=== PATIENT | male | born 1975 | race Caucasian/White ===

== ENCOUNTER 2017-04-10 15:19 | Emergency (ER) | payer MEDICARE, OTHER ==
[2017-04-10 15:24] VITALS: BP 108/77; PULSE 119; RESP 18; TEMP 98.1
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
== END 2017-04-10 16:13 | disposition home or self-care (01) ==
LOC: EEVIPCON 15:19 → EC 15:19
DX: T59.3X3A Toxic effect of lacrimogenic gas, assault, initial encounter (principal); H10.212 Acute toxic conjunctivitis, left eye; R00.0 Tachycardia, unspecified; F17.200 Nicotine dependence, unspecified, uncomplicated
CPT/HCPCS: 99284

== ENCOUNTER → 2017-05-16 | Outpatient (CLI) | payer MEDICARE, OTHER ==
--- NOTE | 2017-05-16 08:23 | US ---
EXAMINATION TYPE: US gallbladder DATE OF EXAM: 05/16/2017 COMPARISON: NONE CLINICAL HISTORY: R10.84 ABD PAIN. Intermittent N/V after eating x 2 weeks, occasional abdomen pain, patient not NPO: drank 1 cup of coffee before exam EXAM MEASUREMENTS: Liver Length: 13.3 cm Gallbladder Wall: 0.2 cm CBD: 0.3 cm Right Kidney: 9.6 x 4.9 x 4.5 cm Difficult and limited study due to patient body habitus and patient not NPO Pancreas: visualized portions wnl, tail obscured by overlying midline bowel gas Liver: somewhat course echotexture visualized heterogeneously hyperechoic Gallbladder: appears wnl as seen, patient not NPO Evidence for sonographic Johnson's sign: no CBD: visualized portions wnl, limited by overlying bowel gas Right Kidney: visualized portions wnl, inferior pole obscured by overlying bowel gas Visualized liver is heterogeneously hyperechoic in appearance. Evaluation for focal masses is subopti mal due to the heterogeneity. IMPRESSION: No shadowing mobile gallstones or ultrasound evidence for acute cholecystitis. Heterogene ous hyperechoic appearance of liver is likely on basis of mild diffuse fatty infiltration.
== END | disposition home or self-care (01) ==
LOC: RADUSWWP 06:56
PROVIDERS: ATTEND Family Medicine
DX: R10.84 Generalized abdominal pain (principal)
CPT/HCPCS: 76705

== ENCOUNTER → 2017-05-18 | Outpatient (CLI) | payer MEDICARE, OTHER ==
--- NOTE | 2017-05-18 11:02 | FL ---
EXAMINATION TYPE: FL UGI air DATE OF EXAM: 05/18/2017 COMPARISON: NONE HISTORY: Abdominal pain, R 10.84 and vomiting after eating TECHNIQUE: A double contrast UGI study is performed. FINDINGS: The esophagus shows normal motility and emptying into the stomach. No evidence of hiatal hernia or s tricture noted. The stomach shows normal distensibility, peristalsis, and mucosal folds. No evidence of any mass or ulcer disease. No significant gastroesophageal reflux was seen during real time performance of this study. The duodenal bulb, sweep, and proximal small bowel loops are unremarkable. 21 images obtained, 3 minutes 20 seconds fluoroscopy time IMPRESSION: Normal upper GI study.
== END | disposition home or self-care (01) ==
LOC: RADFLMAIN 08:31
PROVIDERS: ATTEND Family Medicine
DX: R10.84 Generalized abdominal pain (principal)
CPT/HCPCS: 74246

== ENCOUNTER 2019-10-22 16:48 | Inpatient (IN) | payer MEDICARE, MEDICAID ==
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
[2019-10-22] MEDS ORDERED: ACETAMINOPHEN TAB 325 MG TAB PO PRN (19:09)
[2019-10-22] MEDS ORDERED: ZIPRASIDONE 20 MG VIAL IM PRN (19:09)
[2019-10-22] MEDS ORDERED: MAGNESIUM HYDROXIDE 2,400 MG/10 ML CUP PO PRN (19:09)
[2019-10-22] MEDS ORDERED: MAG HYDROX/AL HYDROX/SIMETH 30 ML CUP PO PRN (19:09)
[2019-10-22] MEDS ORDERED: LORazepam 1 MG TAB PO PRN (19:09)
[2019-10-22] MEDS ORDERED: LORazepam 2 MG/ML INJ IM PRN (19:11)
[2019-10-22 19:41] LABS: Amphetamine Screen,Urine Not Detected (NotDetected); Barbiturate Screen,Urine Not Detected (NotDetected); Benzodiazepines Screen,Urine Not Detected (NotDetected); Cocaine Screen,Urine Not Detected (NotDetected); Methadone Screen, Urine Not Detected (NotDetected); Opiate Screen,Urine Not Detected (NotDetected); Oxycodone Screen, Urine Not Detected (NotDetected); Phencyclidine Screen,Urine Not Detected (NotDetected); Tricyclic Antidepressant,Urine Not Detected (NotDetected); Urn Cannabinoid Scrn Not Detected (NotDetected)
[2019-10-22] MEDS: risperiDONE 1 MG TAB PO SCH (21:17)
[2019-10-23] MEDS ORDERED: ALBUTEROL NEBULIZED 2.5 MG/3 ML INHALATION PRN (01:07)
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
[2019-10-23] MEDS ORDERED: ALBUTEROL INHALER 60 PUFF/8 GM INHALER (MHU) INHALATION PRN (02:00)
[2019-10-23 08:55] LABS: Basophils % (A) 1 %; Eosinophils # (A) 0.1 k/uL (0-0.7); Eosinophils % (A) 2 %; HCT 48.3 % (39.0-53.0); HGB 15.5 gm/dL (13.0-17.5); Lymphocytes % (A) 19 %; MCH 28.7 pg (25.0-35.0); MCHC 32.1 g/dL (31.0-37.0); MCV 89.4 fL (80.0-100.0); Mean Platelet Volume 7.8; Monocytes # (A) 0.3 k/uL (0-1.0); Monocytes % (A) 6 %; Neutrophils # (A) 3.9 k/uL (1.3-7.7); Neutrophils % (A) 71 %; Platelet Count 192 k/uL (150-450); RBC 5.41 m/uL (4.30-5.90); RDW 14.1 % (11.5-15.5); WBC 5.5 k/uL (3.8-10.6)
[2019-10-23] MEDS ORDERED: risperiDONE 2 MG TAB PO SCH (09:00)
[2019-10-23 09:06] LABS: ALT 38 U/L (4-49); AST 30 U/L (17-59); African American GFR (CKD) >90 (>60 ml/min/1.73 sqM); Albumin 4.5 g/dL (3.5-5.0); Alkaline Phosphatase 78 U/L (38-126); Anion Gap 7 mmol/L; Blood Urea Nitrogen 16 mg/dL (9-20); Calcium 9.2 mg/dL (8.4-10.2); Carbon Dioxide 26 mmol/L (22-30); Chloride 106 mmol/L (98-107); Cholesterol 160 mg/dL (<200); Glucose 88 mg/dL (74-99); HDL Cholesterol 42 mg/dL (40-60); LDL Cholesterol,Calculated 80 mg/dL (0-99); Non-African American GFR(CKD) >90 (>60 ml/min/1.73 sqM); Potassium 4.2 mmol/L (3.5-5.1); Sodium 139 mmol/L (137-145); Total Bilirubin 0.8 mg/dL (0.2-1.3); Total Protein 7.3 g/dL (6.3-8.2); Triglycerides 190 mg/dL (<150)
[2019-10-23] MEDS: risperiDONE 1 MG TAB PO SCH (11:12)
[2019-10-23] MEDS: NICOTINE 14MG/24HR PATCH TRANSDERM SCH ×2 (11:13→18:48)
[2019-10-23] MEDS ORDERED: PALIPERIDONE IM 234 MG/1.5 ML SYG IM SCH ×2 (12:00→13:00)
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
[2019-10-23] MEDS: QUEtiapine 200 MG TAB PO SCH (18:48)
[2019-10-24] MEDS: NICOTINE 14MG/24HR PATCH TRANSDERM SCH (09:47)
[2019-10-24] MEDS: PALIPERIDONE 6 MG TAB.ER.24 PO SCH (09:48)
--- NOTE | 2019-10-24 11:31 | P.PN ---
Progress Note - Text Progress Note Date: 10/24/19 Clinical Problems: Schizoaffective disorder bipolar type, alcohol use disorder, intellectual disability, adult antisocial behavior Interim history: I reviewed the medical record, attempted to interview the patient and discussed his treatment and treatment plan during team meeting. He would not get out of bed for the interview. He admitted to experiencing auditory hallucinations. For the "last 8 or 9 years" he is been hearing multiple voices only refers to as "they". The voices tell him to "kill yourself" and to "uatsdin Satan". He becomes angry with his experience because he "refuses to uatsdin Satan. ... You think I'm talking myself but I would not. ... I am talking to them." We restarted and Invega Sustenna 234 mg yesterday and Seroquel 200 mg at bedtime. We also prescribed Invega 6 mg daily since his last injection of Sustenna was in June 2019. Mental status exam: He presented as a withdrawn, irritable, angry but cooperative 44-year-old male. He looked at the floor during the entire conversation. He had psychomotor slowing but no abnormal movements. His speech abrupt and consistent with his mood. He did not express suicidal ideation, wishes or homicidal ideation. He also did not express ideas reference, paranoid ideation or delusional thoughts. He described auditory hallucinations, command auditory hallucinations but did not appear to be responding to internal stimuli during the interview. Assessment: He is irritable, angry and withdrawn. He presented with increasing auditory hallucinations and aggressive behavior after he went several months (approximately 4) without receiving injection of paliperidone. Plan: Continue inpatient treatment. Deferral conference to be scheduled. Continue paliperidone 6 mg daily until the second dose of sustenna. Continue Seroquel 200 mg at bedtime and Invega Sustenna 234 mg IM monthly. Encouraged attendance to therapeutic groups and activities. Evaluate clinical status response to treatment daily basis.
[2019-10-24] MEDS: QUEtiapine 200 MG TAB PO SCH (20:00)
[2019-10-25] MEDS: NICOTINE 14MG/24HR PATCH TRANSDERM SCH (08:17)
[2019-10-25] MEDS: PALIPERIDONE 6 MG TAB.ER.24 PO SCH (08:17)
--- NOTE | 2019-10-25 12:18 | P.PN ---
Progress Note - Text Progress Note Date: 10/25/19 Clinical Problems: Schizoaffective disorder bipolar type, alcohol use disorder, intellectual disability, adult antisocial behavior Interim history: I reviewed the medical record, attempted to interview the patient and discussed his treatment and treatment plan during team meeting. He came to my office for the interview. He was irritable but engaged in interview. He described continued auditory hallucinations that were commanding derogatory and critical. During our interview he commented that "you will never get rid of the hallucinations." He alleged they have been continuous since the onset of his illness and only fluctuates in intensity. I attempted to engage in a conversation of circumstance to this hospitalization. He alleged that he broke furniture and cut up with the drapes because he was mad at "Dipesh". He stated that he does not want to hurt anybody but had to "get out my anger." He talked about "Dipesh" disturbing him and keeping him awake at night time. He made unusual statements such as Dipesh was bringing rats into the house. He became noticeably angrier as we talked about Dipesh. Mental status exam: He presented as a withdrawn, irritable, angry but cooperative 44-year-old male. He looked at the floor during the entire conversation. He had psychomotor slowing but no abnormal movements. His speech dysarthric, abrupt and consistent with his mood. He did not express suicidal ideation, wishes or homicidal ideation. He also did not express ideas reference. He expressed paranoid ideation and possible paranoid delusional beliefs. He described auditory hallucinations, command auditory hallucinations but did not appear to be responding to internal stimuli during the interview. Assessment: He is irritable, angry and withdrawn. He presented with increasing auditory hallucinations and aggressive behavior after he went several months (approximately 4) without receiving injection of paliperidone. Plan: Continue inpatient treatment. Deferral conference to be scheduled. Continue paliperidone 6 mg daily until the second dose of sustenna and Invega Sustenna 234 mg IM monthly. Titrate Seroquel to 300-400 mg at bedtime. Encouraged attendance to therapeutic groups and activities. Evaluate clinical status response to treatment daily basis.
[2019-10-25] MEDS: QUEtiapine 200 MG TAB PO SCH (21:03)
[2019-10-26] MEDS: PALIPERIDONE 6 MG TAB.ER.24 PO SCH (09:02)
[2019-10-26] MEDS: NICOTINE 14MG/24HR PATCH TRANSDERM SCH (09:02)
--- NOTE | 2019-10-26 17:35 | CONS ---
CONSULTATION CHIEF COMPLAINT: Bipolar depression and acute psychosis. HISTORY OF PRESENT ILLNESS: This is another admission for this 44-year-old white male who has a long-standing history of psychiatric problems. He has not been seen in the office since June of 2017. At that time, he was treated for nicotine dependence, alcoholism, depression, and schizophrenia. He was not on any psych medications at that time. Apparently he wound up having some difficulties and they brought him back into the emergency room this time. At present time, he is quite unpleasant and uncooperative. REVIEW OF SYSTEMS: He apparently has not had any headaches, neurologic problems, chest pain, cough, shortness of breath, fever, chills, abdominal pain, etc. Past medical history, family history, personal and social histories reveal that he is not allergic to any medications. He has had no prior surgery. He does smoke and drinks occasionally. PHYSICAL EXAMINATION: Blood pressure is 118/74, pulse of 84, respirations 20. He is afebrile. In general, he appeared to be asleep in bed and irritable upon arousing. He was slightly overweight. Head, ears, eyes, nose, mouth, and throat were grossly normal. Chest is clear to auscultation. Cardiac exam demonstrated sinus rhythm. Abdomen is soft and slightly protuberant. Extremities: Normal. Neurologically, he is intact. IMPRESSION: He is admitted to the hospital with diagnoses: 1. Bipolar depression. 2. History of alcoholism. 3. History of nicotine abuse. RECOMMENDATIONS: None. MMODL / IJN: [id number] /
--- NOTE | 2019-10-26 20:47 | PN ---
DATE OF SERVICE: 10/26/2019 PROGRESS NOTE CHIEF COMPLAINT: The patient was agitated and aggressive in his AFC and had significant property destruction. He stated he "wants to kill somebody" according to his petition for involuntary hospitalization. INTERVAL HISTORY: The patient has been doing fair. He had a quiet day yesterday. He remained quite isolated. He prefers to stay in his room. He said that he slept "okay" last night. He says he prefers to sleep in the day and apparently naps on and off in the day. He made comments about auditory hallucinations. It was difficult to be clear what he was indicating. As noted by Dr. Dia yesterday, he talked about auditory hallucinations that were distressing to him. When I tried to get more information about that, he seemed to suggest that they were not so much of a problem. He made some odd references and it was hard to be clear what he was saying. He acknowledges that he has paranoid thinking and does not really trust people. He has been cooperative with care. He tolerates his psychotropic medications. MENTAL STATUS: Patient sat with a little restlessness. He gave fair eye contact. At best. He answered questions with brief responses. He did not say a lot. At times, his thoughts were somewhat tangential and I was difficult to follow some of what he was saying. His affect was flat, his mood reserved. He seemed moderately distressed. He continues to note paranoid delusions. He was oriented to his circumstances and surroundings. ASSESSMENT: We will continue the current diagnosis and treatment plan. I reviewed medication issues with the patient. I noted Dr. Dia has set up a titration of Seroquel, so he will receive 200 mg again tonight and then tomorrow go up to 300 mg. He has received Invega Sustenna on October 22 and continues with 6 mg of oral Invega. I reviewed indications for the medications, as well as potential side effects including metabolic concerns. I discussed long-term management issues relating to his long-acting injectable. We will continue to focus on stabilization and discharge planning. MMKENAL / ELIZABETHN: [id number] / MTDD
[2019-10-26] MEDS: QUEtiapine 200 MG TAB PO SCH (20:58)
[2019-10-27] MEDS: PALIPERIDONE 6 MG TAB.ER.24 PO SCH (08:26)
[2019-10-27] MEDS: NICOTINE 14MG/24HR PATCH TRANSDERM SCH (08:26)
--- NOTE | 2019-10-27 17:27 | PN ---
PROGRESS NOTE DATE OF SERVICE: 10/27/2019. CHIEF COMPLAINT: The patient was agitated and aggressive in his AFC and had significant property destruction. He stated he "wants to kill somebody" according to his petition for involuntary hospitalization. INTERVAL HISTORY: Patient has been doing fair. He had a quiet evening last night. He keeps to himself. He spends a fair amount of time in his room. He chooses not to attend groups. He slept fairly well last night. Today he has been up. Still he keeps to himself. He does not interact too much with others. It is noteworthy that he will have periods where he will swiss machinist the doorway of his room and seemingly look up and down the somers as if with an appearance of being quite guarded and suspicious. He acknowledges that he continues to have paranoid thinking. He asked about whether his medication could be increased. He has been cooperative with care. He tolerates his psychotropic medications. MENTAL STATUS: Patient gave fairly good eye contact. At times, he had a staring gaze, though also he would look off to his side as if he was looking in a guarded manner. He answered questions with brief responses. His thoughts were clear. His affect was constricted. His mood reserved. He seems somewhat distressed, though he did present in the interview with a fairly calm if not almost friendly manner. He continues with paranoid delusions. He voices no thoughts of harm to self or others. He was oriented and alert. ASSESSMENT: I will continue the current diagnosis and treatment plan. I reviewed medication issues with the patient. I will increase Seroquel to 400 mg at bedtime. He continues on Invega 6 mg a day along with his Invega Sustenna. I reviewed medication issues as far as the anticipation of the followup dose of Sustenna. I discussed long-term treatment issues. We will focus on stabilization and discharge planning. MMODL / IJN: [id number] /
[2019-10-27] MEDS ORDERED: QUEtiapine 100 MG TAB PO SCH (21:00)
[2019-10-27] MEDS: QUEtiapine 200 MG TAB PO SCH (21:14)
[2019-10-28] MEDS: NICOTINE 14MG/24HR PATCH TRANSDERM SCH (08:14)
[2019-10-28] MEDS: PALIPERIDONE 6 MG TAB.ER.24 PO SCH (08:14)
--- NOTE | 2019-10-28 15:02 | P.PN ---
Progress Note - Text Progress Note Date: 10/28/19 Clinical Problems: Schizoaffective disorder bipolar type, alcohol use disorder, intellectual disability, adult antisocial behavior Interim history: I reviewed the medical record, attempted to interview the patient and discussed his treatment and treatment plan during team meeting. He came to my office for the interview. He was not irritable and engaged in the interview. He asked for assistance with finding alternate housing stating that he will not return to his room and board. He minimized auditory hallucinations and stated they are "not that bad now." The social worker assistant reported that he cannot return to the room and board and discard he is requesting a "crisis bed". The [facility] liaison suggested temporary placement at [facility]. Mental status exam: He presented as a pleasant and cooperative 44-year-old male. He made eye contact and attended to the interview. He had psychomotor slowing but no abnormal movements. His speech was dysarthric, abrupt and appropriate. He did not express suicidal ideation, wishes or homicidal ideation. He also did not express ideas reference. He did not express paranoid ideation and possible paranoid delusional beliefs. He acknowledges he continues to experience auditory hallucinations but didn't experience was not overwhelming or preoccupying. Assessment: He is much less irritable, angry and withdrawn. He can be discharge once we find appropriate temporary housing. Plan: Continue inpatient treatment. Deferral conference to be scheduled. Continue paliperidone 6 mg daily until the second dose of sustenna and Invega Sustenna 234 mg IM monthly. Seroquel 400 mg at bedtime. Encouraged attendance to therapeutic groups and activities. Evaluate clinical status response to treatment daily basis.
[2019-10-28] MEDS: QUEtiapine 200 MG TAB PO SCH (21:00)
[2019-10-29] MEDS: NICOTINE 14MG/24HR PATCH TRANSDERM SCH (09:34)
[2019-10-29] MEDS: PALIPERIDONE 6 MG TAB.ER.24 PO SCH (09:34)
--- NOTE | 2019-10-29 13:03 | P.PN ---
Progress Note - Text Progress Note Date: 10/29/19 Clinical Problems: Schizoaffective disorder bipolar type, alcohol use disorder, intellectual disability, adult antisocial behavior Interim history: I reviewed the medical record, attempted to interview the patient and discussed his treatment and treatment plan during team meeting. He came to my office for the interview. He was irritable and minimally cooperative. I explained that his guardian requesting placement in a correction and we plan to keep him in hospital and find suitable placement. He replied "what do you want me to do? Cry like a baby?" Mental status exam: He presented as an irritable and minimally cooperative 44-year-old male. He did not made eye contact but appeared to attended to the interview. He looked at the floor window throughout the interview. He had psychomotor slowing but no abnormal movements. His speech was dysarthric and abrupt. He did not express suicidal ideation, wishes or homicidal ideation. He also did not express ideas reference. He is paranoid but did not express paranoid ideation and possible paranoid delusional beliefs. He ack nowledges he continues to experience auditory hallucinations. "They are not telling me to kill myself." Assessment: He is paranoid, irritable, angry and withdrawn. Plan: Continue inpatient treatment. Deferral conference to be scheduled. Continue paliperidone 6 mg daily until the second dose of sustenna and Invega Sustenna 234 mg IM monthly. Seroquel 400 mg at bedtime. Consider a clozapine trial. Encouraged attendance to therapeutic groups and activities. Evaluate clinical status response to treatment daily basis.
[2019-10-29] MEDS: QUEtiapine 200 MG TAB PO SCH (21:18)
[2019-10-30] MEDS: PALIPERIDONE 6 MG TAB.ER.24 PO SCH (09:18)
[2019-10-30] MEDS: NICOTINE 14MG/24HR PATCH TRANSDERM SCH (09:18)
[2019-10-30 10:57] LABS: Basophils % (A) 1 %; Eosinophils # (A) 0.1 k/uL (0-0.7); Eosinophils % (A) 1 %; HGB 14.7 gm/dL (13.0-17.5); Lymphocytes # (A) 0.8 k/uL (1.0-4.8); Lymphocytes % (A) 17 %; MCH 28.8 pg (25.0-35.0); MCHC 33.3 g/dL (31.0-37.0); MCV 86.4 fL (80.0-100.0); Mean Platelet Volume 7.4; Monocytes # (A) 0.3 k/uL (0-1.0); Monocytes % (A) 6 %; Neutrophils # (A) 3.4 k/uL (1.3-7.7); Neutrophils % (A) 73 %; Platelet Count 179 k/uL (150-450); RDW 13.8 % (11.5-15.5); WBC 4.7 k/uL (3.8-10.6)
--- NOTE | 2019-10-30 12:07 | P.PN ---
Progress Note - Text Progress Note Date: 10/30/19 Clinical Problems: Schizoaffective disorder bipolar type, alcohol use disorder, intellectual disability, adult antisocial behavior Interim history: I reviewed the medical record, interviewed the patient and discussed his treatment and treatment plan during team meeting. He came to my office for the interview. He was not irritable or overtly paranoid. He described continued auditory hallucinations that were commanding and derogatory. He stated that he is had these hallucinations for several years and believes that there is nothing we can do to eliminate the experience. We discussed treatment options and he agreed to a trial of clozapine. Mental status exam: He presented as cooperative 44-year-old male. He did not made eye contact but appeared to attended to the interview. He looked at the floor throughout the interview. He had psychomotor slowing but no abnormal movements. His speech was dysarthric and abrupt. He did not express suicidal ideation, wishes or homicidal ideation. He also did not express ideas reference. He is paranoid but did not express paranoid ideation and possible paranoid delusional beliefs. He acknowledges he continues to experience auditory hallucinations. Assessment: He is persistently and severely mentally ill and has shown only par tial response to multiple antipsychotic medications. Plan: Continue inpatient treatment. Continue paliperidone 6 mg daily until the second dose of sustenna and Invega Sustenna 234 mg IM monthly. Taper then discontinue Seroquel. Begin clozapine 12.5 mg and titrate to a minimum of 200 mg daily. Obtain weekly CBC with differential. Encouraged attendance to therapeutic groups and activities. Evaluate clinical status response to treatment daily basis.
[2019-10-30 14:01] VITALS: BMI 28.3
[2019-10-30] MEDS ORDERED: cloZAPine 25 MG TAB PO SCH (21:00)
[2019-10-30] MEDS ORDERED: QUEtiapine 100 MG TAB PO SCH (21:00)
[2019-10-30] MEDS: cloZAPine 25 MG TAB PO SCH (21:03)
[2019-10-31] MEDS: PALIPERIDONE 6 MG TAB.ER.24 PO SCH (08:49)
[2019-10-31] MEDS: NICOTINE 14MG/24HR PATCH TRANSDERM SCH (08:49)
--- NOTE | 2019-10-31 12:05 | P.PN ---
Progress Note - Text Progress Note Date: 10/31/19 Clinical Problems: Schizoaffective disorder bipolar type, alcohol use disorder, intellectual disability, adult antisocial behavior Interim history: I reviewed the medical record, interviewed the patient and discussed his treatment and treatment plan during team meeting. He denied side effects to initial doses of clozapine. He described continued auditory hallucinations involving "people from [facility]" talking to him. He was irritable but not overtly hostile. He continued to complain about a machine pie maker at the [facility] home. During the interview he talked about wanting to "kick his ass" but denied intent or plan. Mental status exam: He presented as cooperative 44-year-old male. He intermittently made eye contact but appeared to attended to the interview. He looked at the floor throughout the interview. He had psychomotor slowing but no abnormal movements. His speech was dysarthric and abrupt. He did not express suicidal ideation, wishes or homicidal ideation. He also did not express ideas reference. He is paranoid but did not express paranoid ideation and possible paranoid delusional beliefs. He acknowledges he continues to experience auditory hallucinations. Assessment: He is persistently and severely mentally ill and has shown only partial response to multiple antipsychotic medications. Plan: Continue inpatient treatment. Continue paliperidone 6 mg daily until the second dose of sustenna and Invega Sustenna 234 mg IM monthly. Taper then discontinue Seroquel. Continue titration of clozapine. Obtain weekly CBC with differential. Encouraged attendance to therapeutic groups and activities. Evaluate clinical status response to treatment daily basis.
[2019-10-31] MEDS ORDERED: QUEtiapine 200 MG TAB PO SCH (21:00)
[2019-10-31] MEDS ORDERED: cloZAPine 25 MG TAB PO SCH (21:00)
[2019-10-31] MEDS: cloZAPine 25 MG TAB PO SCH (21:22)
[2019-11-01] MEDS: NICOTINE 14MG/24HR PATCH TRANSDERM SCH (09:49)
[2019-11-01] MEDS: PALIPERIDONE 6 MG TAB.ER.24 PO SCH (09:49)
--- NOTE | 2019-11-01 11:09 | P.PN ---
Progress Note - Text Progress Note Date: 11/01/19 Clinical Problems: Schizoaffective disorder bipolar type, alcohol use disorder, intellectual disability, adult antisocial behavior Interim history: I reviewed the medical record, interviewed the patient and discussed his treatment and treatment plan during team meeting. He complained of marked sedation from the 100 mg dose of clozapine. She was reluctant to talk about his psychotic experiences. When I asked if he is still "hearing voices" he replied "we will never get rid of the voices." Mental status exam: He presented as sedated 44-year-old male. He would not get out of bed but made eye contact but appeared to attended to the interview. He had psychomotor slowing but no abnormal movements. His speech was dysarthric and abrupt. He did not express suicidal ideation, wishes or homicidal ideation. He also did not express ideas reference. He was not as guarded or paranoid as she was from prior encounters. He acknowledges he continues to experience auditory hallucinations but would not talk about the experience. Assessment: He is having increasing sedation from the clozapine. The hallucinatory experiences appear to have diminished and he is less guarded and suspicious. Plan: Continue inpatient treatment. Continue paliperidone 6 mg daily until the second dose of sustenna and Invega Sustenna 234 mg IM monthly. Taper then discontinue Seroquel. Hold the clozapine dose to 100 mg at bedtime. Obtain weekly CBC with differential. Encouraged attendance to therapeutic groups and activities. Evaluate clinical status response to treatment daily basis.
[2019-11-01] MEDS ORDERED: QUEtiapine 100 MG TAB PO SCH (21:00)
[2019-11-01] MEDS: cloZAPine 100 MG TAB PO SCH (21:17)
[2019-11-02] MEDS: PALIPERIDONE 6 MG TAB.ER.24 PO SCH (08:19)
[2019-11-02] MEDS: NICOTINE 14MG/24HR PATCH TRANSDERM SCH (08:20)
--- NOTE | 2019-11-02 08:51 | P.PN ---
Progress Note - Text Progress Note Date: 11/02/19 Clinical Problems: Schizoaffective disorder bipolar type, alcohol use disorder, intellectual disability, adult antisocial behavior Interim history: I reviewed the medical record and interviewed the patient He complained of marked sedation from the 100 mg dose of clozapine. He complained of sedation and did not want to come to my office for the interview. He is laying in bed and would not take the blanket over him over his head. When I asked if he has any concerns he replied "no". I asked about auditory hallucinations and he replied "do not a problem now." He does not participate in therapeutic groups and activities. He's been no management problem had no episodes. His control. Mental status exam: He was withdrawn and minimally cooperative He would not get out of bed and would not make eye contact. His speech was dysarthric and abrupt. He was irritable but not inappropriate He did not express suicidal ideation, wishes or homicidal ideation. He also did not express ideas reference. He was not as guarded or paranoid as she was from prior encounters. He did not appear to be responding to internal stimuli and reported a decline in his severity of the auditory hallucinations. Assessment: He appears to be responding to clozapine with decreased in the severity of the auditory hallucinations. Plan: Continue inpatient treatment. We may be able to discontinue the oral paliperidone sooner. Continue Invega Sustenna 234 mg IM monthly and clozapine dose to 100 mg at bedtime and titrated according to clinical response and tolerance.. Obtain weekly CBC with differential. Encouraged attendance to therapeutic groups and activities. Evaluate clinical status response to treatment daily basis.
[2019-11-02] MEDS ORDERED: cloZAPine 100 MG TAB PO SCH (09:00)
[2019-11-02] MEDS: cloZAPine 100 MG TAB PO SCH (19:41)
[2019-11-02] MEDS ORDERED: QUEtiapine 50 MG TAB PO SCH (21:00)
[2019-11-03] MEDS: NICOTINE 14MG/24HR PATCH TRANSDERM SCH (08:52)
[2019-11-03] MEDS: PALIPERIDONE 6 MG TAB.ER.24 PO SCH (08:52)
--- NOTE | 2019-11-03 12:30 | P.PN ---
Progress Note - Text Progress Note Date: 11/03/19 Clinical Problems: Schizoaffective disorder bipolar type, alcohol use disorder, intellectual disability, adult antisocial behavior Interim history: I reviewed the medical record and interviewed the patient. He was more communicative than on prior encounters. He denied that he is experiencing auditory hallucinations but believes that he has a chip implanted in his brain. He believes that he chip places thoughts in his mind. He believes that a chip was implanted when he "ate a banana." He became overtly distressed as he was discussing disbelief. He does not participate in therapeutic groups and activities. He's been no management problem and had no episodes of behavioral dyscontrol Mental status exam: He was withdrawn but cooperativ. He was pleasant on approach and made eye contact. His speech was dysarthric. He became irritable when he was describing the above delusional belief. He did not express suicidal ideation, wishes or homicidal ideation. He was not as guarded or paranoid as she was from prior encounters. He continues experiencing auditory hallucinations and thought insertion. Assessment: He appears to be responding to clozapine with decreased in the severity of the auditory hallucinations. Plan: Continue inpatient treatment. Decrease paliperidone 3 mg daily. Continue Invega Sustenna 234 mg IM monthly. Increase clozapine to 150 mg at bedtime and titrated according to clinical response and tolerance. Obtain weekly CBC with differential. Encouraged attendance to therapeutic groups and activities. Evaluate clinical status response to treatment daily basis.
[2019-11-03] MEDS: cloZAPine 100 MG TAB PO SCH (20:55)
[2019-11-04] MEDS: NICOTINE 14MG/24HR PATCH TRANSDERM SCH (08:47)
[2019-11-04] MEDS ORDERED: PALIPERIDONE 6 MG TAB.ER.24 PO SCH (09:00)
--- NOTE | 2019-11-04 12:37 | P.PN ---
Progress Note - Text Progress Note Date: 11/04/19 I reviewed medical records ,I did interview patient and we discussed his treatment plan during team meeting TODAY VITALS:pulse:96,Respiration :16,BP;110/59 Recent labs: WBC on 10/29 was 4.7 Interval history: The patient is found in his room he is lying in bed and he agreed to follow me to the office He is avoiding eyes contact,he reports that he has been hearing woman voice telling him to hurt himself " it does remind me of my mom ,she was not supportive ,"then he talked about his roommate from boarding home and patient claimed that "He did urinate on my clothing and staffs did not do anything ,"he denies any homicidal ideation,but he was distressed and angry talking about his guardian and housing situation "I just want to be my own guardian.",patient is very concrete,reports feeling tired and was dizzy last night "They are giving me strong sleeping pills and I saw ben vera on the ceiling last night" We discussed side-effects from Clozapine and Invega We discussed that we are monitoring his blood pressure and trying to titrate that Clozaril slowly. No report of any behavioral disturbances. He does not participate in therapeutic groups and activities Mental status exam: The patient was wearing hosital gown ,poor grooming ,cooperative ,appropriate speech ,dysarthric , non spontaneous . He indicates his mood is "frustrated " affect is blunted to flat. He is demonstrating no tremor or psychomotor agitation. He does endorse auditory hallucinations he indicates they are commanding directing self-harm but denies any harm to others He demonstrates no verbal or physical aggressiveness he appears to be no physical distress. He continues experiencing paranoia ,limited intellectual function and very concrete He demonstrates no evidence of hypomania or vito. Clinical Problems: Schizoaffective disorder bipolar type and intellectual disability Plan: The patient will continue on the clozapine ,clozapine was just increased to 150 mg yesterday. We'll monitor his blood pressure. Discontinue oral Invega . Continue Invega Sustenna 234 mg IM monthly. He received injection on 10/22,we will titrate Clozapine slowly according to clinical response and tolerance. Obtain weekly CBC with differential. Encouraged attendance to therapeutic groups and activities. Evaluate clinical status response to treatment daily basis. He requires continued psychiatric hospitalization.
[2019-11-04] MEDS: cloZAPine 100 MG TAB PO SCH (21:01)
[2019-11-05] MEDS: NICOTINE 14MG/24HR PATCH TRANSDERM SCH (09:58)
--- NOTE | 2019-11-05 12:00 | P.PN ---
Progress Note - Text Progress Note Date: 11/05/19 I reviewed medical records ,I did interview patient and we discussed his treatment plan during team meeting TODAY VITALS:pulse:98,Respiration :16,BP;102/58,temp:98 Interval history: The patient was dressed in his street clothing,,he reports that he does believe someone inserted chips in his head ,when I asked him about auditory hallucinations ,he replied "I can ignore it",he denies any suicidal or homicidal ideation ,stated that he is feeling "physically sick",reports coughing ,body aches and chills .He slept 5 hours last night and does not feel so sedated this morning since we discontinued oral Invega According to yesterday nurse note:patient was out for a bit last evening [place] [facility] [place] interaction with other patients We discussed side-effects from Clozapine and Invega We discussed that we are monitoring his blood pressure and trying to titrate that Clozaril slowly. No report of any behavioral disturbances. Today he was willing to participate in therapeutic groups and activities Mental status exam: The patient was wearing his street cloth,fair grooming ,co operative ,appropriate speech ,dysarthric , non spontaneous . He indicates his mood is "better" " affect is blunted to flat. He is demonstrating no tremor or psychomotor agitation. He reports thought insertion ,still having auditory hallucinations but not command in nature and stated he can ignore it are .He denies any ideation of self-harm or others He demonstrates no verbal or physical aggressiveness . His thinking is concrete . insight and judgment are limited Clinical Problems: Schizoaffective disorder bipolar type and intellectual disability C/O:" of chills ,cough and body aches Plan: The patient will continue on the clozapine ,clozapine 150 mg ,will increase it to 200 mg in couple of days as his blood pressure is 102/58. We'll monitor his blood pressure. . Continue Invega Sustenna 234 mg IM monthly. He received injection on 10/22,we will titrate Clozapine slowly according to clinical response and tolerance. Obtain weekly CBC with differential. Encouraged attendance to therapeutic groups and activities. Evaluate clinical status response to treatment daily basis. He requires continued psychiatric hospitalization. Will order Coronavirus test
[2019-11-05] MEDS: cloZAPine 100 MG TAB PO SCH (19:59)
[2019-11-05] MEDS ORDERED: cloZAPine 100 MG TAB PO SCH (21:00)
--- NOTE | 2019-11-06 08:06 | P.PN ---
Progress Note - Text Progress Note Date: 11/06/19 I reviewed medical records ,I did interview patient and we discussed his treatment plan during team meeting TODAY VITALS:pulse:94,Respiration :16,BP;120/79,temp:97.7 Slept 7 hours Interval history: The patient was seen in his room as he is on droplet precaution ,had Qureshi testing yesterday ,result is pending,he reports that he does believe someone inserted chips in his head , he reports auditory hallucination saying "They will never go away" he stated that these voices calling him names ,he denies any suicidal or homicidal ideation Mental status exam: The patient was wearing his street cloth,poor grooming ,superficielly cooperative,cooperative ,appropriate speech ,dysarthric , non spontaneous . He indicates his mood is "Tired" " affect is blunted to flat. He is demonstrating no tremor or psychomotor agitation. He reports thought insertion ,still having auditory hallucinations but not command in nature .He denies any ideation of self-harm or others He demonstrates no verbal or physical aggressiveness . His thinking is concrete . insight and judgment are limited Clinical Problems: Schizoaffective disorder bipolar type and intellectual disability ,rule out Coronavirus Plan: The patient will continue on the clozapine ,clozapine 150 mg,waiting for WBC result to increase Clozaril We'll monitor his blood pressure. . Continue Invega Sustenna 234 mg IM monthly. He received injection on 10/22,we will titrate Clozapine slowly according to clinical response and tolerance. Obtain weekly CBC with differential. . Evaluate clinical status response to treatment daily basis. He requires continued psychiatric hospitalization. Continue droplet precaution till result of Coronavirus testing
[2019-11-06 08:17] LABS: Basophils % (A) 0 %; Eosinophils # (A) 0.3 k/uL (0-0.7); Eosinophils % (A) 3 %; HCT 44.7 % (39.0-53.0); HGB 14.5 gm/dL (13.0-17.5); Lymphocytes # (A) 1.2 k/uL (1.0-4.8); Lymphocytes % (A) 12 %; MCH 28.5 pg (25.0-35.0); MCHC 32.4 g/dL (31.0-37.0); MCV 87.9 fL (80.0-100.0); Mean Platelet Volume 7.5; Monocytes # (A) 0.4 k/uL (0-1.0); Monocytes % (A) 4 %; Neutrophils # (A) 7.9 k/uL (1.3-7.7); Neutrophils % (A) 79 %; Platelet Count 210 k/uL (150-450); RBC 5.08 m/uL (4.30-5.90); RDW 14.1 % (11.5-15.5)
[2019-11-06] MEDS: NICOTINE 14MG/24HR PATCH TRANSDERM SCH (09:13)
--- NOTE | 2019-11-06 13:22 | P.PN ---
Progress Note - Text Progress Note Date: 11/06/19 Addendum to my previous note: Labs results:WBC:10.0,Neutrophils:7.9 TX: We will increase Clozaril to 200 mg HS and monitor blood pressure
[2019-11-06] MEDS: cloZAPine 100 MG TAB PO SCH (21:18)
[2019-11-07] MEDS: NICOTINE 14MG/24HR PATCH TRANSDERM SCH (09:40)
--- NOTE | 2019-11-07 10:42 | P.PN ---
Progress Note - Text Progress Note Date: 11/07/19 I reviewed medical records ,I did interview patient and we discussed his treatment plan during team meeting TODAY VITALS:pulse:88,Respiration :16,BP;124/74,temp:97.7 Interval history: The patient was seen in his room as he is on droplet precaution he reports that he does believe someone inserted chips in his head , today he denies any command auditory hallucinations ,he stated that he is frustrated as he is not able to go to lounge to watch TV "Did I do something wrong to put me here "I explained to him that we are waiting for COVA19 testing result Mental status exam: The patient was wearing his street cloth,poor grooming ,,cooperative ,appropriate speech ,dysarthric , non spontaneous . He indicates his mood is "Tired" " affect is blunted to flat. He is demonstrating no tremor or psychomotor agitation. He reports thought insertion ,still having auditory hallucinations but not command in nature .He denies any ideation of self-harm or others He demonstrates no verbal or physical aggressiveness . His thinking is concrete . insight and judgment are limited Clinical Problems: Schizoaffective disorder bipolar type and intellectual disability Plan: The patient will continue on the clozapine ,clozapine 200 mg HS We'll monitor his blood pressure. . Continue Invega Sustenna 234 mg IM monthly. He received injection on 10/22,we will titrate Clozapine slowly according to clinical response and tolerance. Obtain weekly CBC with differential. . Evaluate clinical status response to treatment daily basis. He requires continued psychiatric hospitalization. Continue droplet precaution till result of SESAR 19
[2019-11-07] MEDS: cloZAPine 100 MG TAB PO SCH (20:46)
[2019-11-07] MEDS ORDERED: cloZAPine 100 MG TAB PO SCH (21:00)
[2019-11-08] MEDS: NICOTINE 14MG/24HR PATCH TRANSDERM SCH (09:07)
--- NOTE | 2019-11-08 11:41 | P.PN ---
Progress Note - Text Progress Note Date: 11/08/19 I reviewed medical records ,I did interview patient and we discussed his treatment plan during team meeting TODAY VITALS:temp:98.2,Pulse:101,R:16,BP: 125/70 Slept 3 hours No behavioral problems ,no prn [id number] :not detected Interval history: I found patient in his room and he agreed to follow me to office for interview. He stated "I do not believe that I do not have Qureshi till I see it with my eyes",so I saw patient result on computer ,he replied "what does mean non detected ",I explained to him and he verbalized understanding. Patient stated that he has auditory hallucinations "Most of my life ,never goes away",he was hesitant to tell me content of voices then he said "Evil voice telling me to kill people but I will not listen to this evil voice",patient is disorganized ,at times mumbling to himself Mental status exam: The patient was wearing his street cloth,poor grooming , ,cooperative ,appropriate speech ,dysarthric , non spontaneous . He indicates his mood is "Tired" " affect is blunted to flat. He is demonstrating no tremor or psychomotor agitation. He reports paranoia and suspicious feeling,still having auditory hallucinations but stated that he can ignore it.He denies any ideation of self-harm. He demonstrates no verbal or physical aggressiveness . His thinking is concrete . insight and judgment are limited Clinical Problems: Schizoaffective disorder bipolar type and intellectual disability Plan: The patient will continue on the clozapine ,clozapine 200 mg HS We'll monitor his blood pressure. . Continue Invega Sustenna 234 mg IM monthly. He received injection on 10/22,we will titrate Clozapine slowly according to clinical response and tolerance. Obtain weekly CBC with differential. . Evaluate clinical status response to treatment daily basis. He requires continued psychiatric hospitalization. Encourage participation in therapeutic groups
[2019-11-08] MEDS: cloZAPine 100 MG TAB PO SCH (20:05)
[2019-11-09] MEDS: NICOTINE 14MG/24HR PATCH TRANSDERM SCH (07:59)
--- NOTE | 2019-11-09 11:00 | P.PN ---
Progress Note - Text Progress Note Date: 11/09/19 Interval history: Patient was seen laying in his bed today and was directable and agreeable to speak with program writer. Patient refused to get out of bed to speak with program writer however was able to speak to him at the bedside. Patient appeared to have some disorganized speech and rambles at times. He did not offer any complaints and states that he is able to sleep well during the day. He states that he had been going to some groups however did not not elaborate much on the content of the groups. He states that he is eating and drinking well on the unit. He did make bizarre statements about why he is not hospital and appeared to have poor insight into his condition. At this time patient denies any suicidal or homicidal ideations intent or plan. He states that he hears voices "all the time". Patient denies any side effects from the medications and has been compliant with meds. Mental status exam: General Appearance: Patient appears to be stated age is alert, directable, and cooperative. Wearing street clothing. Behavior: No agitated behavior. Patient is calm and directable Speech: Patient's speech is fluent and nonpressured. Garbled speech. Disorganized Mood/Affect: Mood is improving mildly, affect is congruent and constricted. Suicidality/Homicidality: Patient denies having any suicidal or homicidal ideation intent or plan. Perceptions: Patient denies any visual hallucinations. He admits to auditory hallucinations "all the time". Though content/process: Patient made bizarre statements, had poor insight, illogical at times. Memory and concentration: AOX3, grossly intact for the purposes of this session Judgment and insight: improving mildly Assessment/Plan: Continue with current diagnosis. Patient continues to meet criteria for inpatient psychiatric admission for symptom stabilization and safety.Patient will be maintained on current psychotropic medication regimen. Monitor for medication compliance and for any psychotropic medication side effects. Will continue to monitor ongoing response to treatment. Encouraged participation in milieu.
[2019-11-09] MEDS: cloZAPine 100 MG TAB PO SCH (20:13)
[2019-11-10 06:49] VITALS: RESP 16
[2019-11-10] MEDS: NICOTINE 14MG/24HR PATCH TRANSDERM SCH (07:47)
--- NOTE | 2019-11-10 11:37 | P.PN ---
Progress Note - Text Progress Note Date: 11/10/19 Interval history: Patient was seen laying in his bed today and was directable and agreeable to speak with sql report writer. Patient claims that "I'm not interested in that stuff" and pointed to sql report writer's papers in his hand. Patient for the most part was appropriate with sql report writer. He appeared to have poor insight into his condition. Patient refused to get out of bed to speak with sql report writer today. Patient appeared to have some disorganized speech and rambles at times. He did not offer any complaints and states that he is able to sleep well. He states that he had been going to some groups. He states that he is eating and drinking well on the unit. At this time patient denies any suicidal or homicidal ideations intent or plan. He states that he is not hearing any voices today. Patient denies any side effects from the medications and has been compliant with meds. Mental status exam: General Appearance: Patient appears to be stated age is alert, directable, and cooperative. Wearing street clothing. Behavior: No agitated behavior. Patient is calm and directable Speech: Patient's speech is fluent and nonpressured. Garbled speech. Disorganized Mood/Affect: Mood is improving mildly, affect is congruent and constricted. Suicidality/Homicidality: Patient denies having any suicidal or homicidal ideation intent or plan. Perceptions: Patient denies any visual hallucinations. He denies hearing any auditory hallucinations today. Though content/process: Patient made bizarre statements, had poor insight, illogical at times. Memory and concentration: AOX3, grossly intact for the purposes of this session Judgment and insight: improving mildly Assessment/Plan: Continue with current diagnosis. Patient continues to meet criteria for inpatient psychiatric admission for symptom stabilization and safety.Patient will be maintained on current psychotropic medication regimen. Monitor for medication compliance and for any psychotropic medication side effects. Will continue to monitor ongoing response to treatment. Encouraged participation in milieu.
[2019-11-10] MEDS: cloZAPine 100 MG TAB PO SCH (20:09)
[2019-11-11 06:37] VITALS: BP 107/54; PULSE 99; TEMP 97.8
[2019-11-11] MEDS: NICOTINE 14MG/24HR PATCH TRANSDERM SCH (08:50)
--- NOTE | 2019-11-11 10:13 | P.PN ---
Progress Note - Text Progress Note Date: 11/11/19 I reviewed medical records ,I did interview patient and we discussed his treatment plan during team meeting TODAY VITALS:temp:97.8,pulse:99,BP:107/54 ,oxygen saturation :94 Slept 5 hours No behavioral problems ,no prn Interval history: I found patient in his room ,refused to come to office saying "I am tired ,can we talk here ",stated that he wants to be discharged ,he denies any suicidal or homicidal ideation ,no sleeping or appetite problems,regarding hallucinations he stated "I am able to block all voices",does not participate in groups,reports feeling tired in morning from medications ,denies any other side- effects Mental status exam: The patient was wearing his street cloth,poor grooming ,,cooperative ,appropriate speech ,dysarthric , non spontaneous . He indicates his mood is "Tired" " affect is blunted to flat. He is demonstrating no tremor or psychomotor agitation. He denies any homicidal ideation ,still having auditory hallucinations but stated that he can ignore it.He denies any ideation of self-harm. He demonstrates no verbal or physical aggressiveness . H is thinking is concrete . insight and judgment are improving Clinical Problems: Schizoaffective disorder bipolar type and intellectual disability Plan: The patient will continue on the clozapine ,clozapine 200 mg HS We'll monitor his blood pressure. . Continue Invega Sustenna 234 mg IM monthly. He received injection on 10/22,we will titrate Clozapine slowly according to clinical response and tolerance. Obtain weekly CBC with differential. . Evaluate clinical status response to treatment daily basis. He requires continued psychiatric hospitalization. Encourage participation in therapeutic groups
--- NOTE | 2019-11-11 16:48 | DS ---
DISCHARGE SUMMARY ADMISSION DATE: 10/22/2019 DISCHARGE DATE: 11/11/2019 The patient was initially admitted to Dr. Shoaib Dia's care and he was under his care until November 04, 2019 then he was transferred to in as Dr. Dia went on vacation. SPREADER: Dr. Shaikh. He was consulted for history and physical examination and for followup. His impression, patient has mild asthma and he did recommend Albuterol inhaler as needed. For complete psychiatric H and P, please refer to Dr. Dia's initial evaluation on October 23, 2019. HISTORY OF PRESENT ILLNESS: As the patient was initially uncooperative, guarded, very paranoid, suspicious, delusional, that other people in the [facility] were bothering him and he did admit that he did break television, in addition that he did cut the curtain because other residents were bothering him. Also, he did have auditory hallucination telling him that he is not good and that we are making fun of him. For complete evaluation, please refer to his notes. HOSPITAL COURSE: Dr. Dia continued patient on his Invega injection ,he received Invega 234 on October 23, 2019. He put him back on Seroquel at bedtime and titrate Seroquel to up to 600. However, the patient was still very paranoid, mumbling to himself and hearing voices telling him to hurt people, so he discontinued Seroquel and he did start him on Clozaril. He put him on 50 mg with increase by 50 mg every week with blood workup, patient was transferred to my care on 11/03 I gradually increased Clozaril up to 200 mg and I did discontinue the oral Invega as he was on oral Invega 6 mg at bedtime. Regarding the lab workup, on October 30, 2019 his white blood cells 4.7, neutrophils 3.4. On November 05, his white blood cells 10.0 and his neutrophil it is 7.9. So on November 05, Clozaril was increased to 200 mg daily. Regarding the rest of the lab workup, his cholesterol was normal 160; however, his triglyceride is 190. During his hospitalization here, he was complaining of coughing and sneezing, so we did order COVID testing and it came back negative. During his hospitalization the patient did not participate in any group therapy. He is always in the lounge watching TV or in his room in his bed, very minimal interaction with other peers. Mental status examination at time of the discharge,: , patient is casually dressed, poor grooming, cooperative, pleasant on approach and made good eye contact. His speech was dysarthric. He is not irritable or agitated. Regarding auditory hallucination, he said "I can block all the voices and I am very good to ignore it." He denies any command hallucination He denied any suicidal ideation, wishes. He denied any homicidal ideation. He was not guarded or paranoid as the time of admission. His insight and judgment are limited due to his intellectual disability. DISCHARGE DIAGNOSES: 1. Schizoaffective disorder, bipolar type. 2. Intellectual disability. PLAN: Patient will be discharged to the [facility]. He will continue on Invega Sustenna 234 mg IM monthly. His next injection is November 21,also he on clozapine 200 mg at bedtime. It can be titrated in the outpatient, depending on the clinical response and tolerance with weekly CBC with differential. Prognosis fair with continued treatment and compliance with medications. MMODL / IJN: [id number] / MTDD
== END 2019-11-11 17:37 | disposition home or self-care (01) | DRG 885 ==
LOC: EC 16:48 → 3MHU 18:52
PROVIDERS: ADMIT Psychiatry & Neurology Psychiatry; ATTEND Psychiatry & Neurology Psychiatry
DX: F25.0 Schizoaffective disorder, bipolar type (principal); F10.29 Alcohol dependence with unspecified alcohol-induced disorder; F79 Unspecified intellectual disabilities; Z72.811 Adult antisocial behavior; J45.20 Mild intermittent asthma, uncomplicated; R47.1 Dysarthria and anarthria; Z20.828 Contact with and (suspected) exposure to other viral communicable diseases; F17.200 Nicotine dependence, unspecified, uncomplicated; Z71.6 Tobacco abuse counseling; Z79.899 Other long term (current) drug therapy
CPT/HCPCS: 80053; 80061; 80306; 82075; 83036; 84443; 85025; 99285

== ENCOUNTER → 2020-05-14 | Outpatient (CLI) | payer MEDICARE, OTHER ==
--- NOTE | 2020-05-14 11:06 | MR ---
EXAMINATION TYPE: MR brain wo/w con DATE OF EXAM: 05/14/2020 COMPARISON: None HISTORY: New onset seizures TECHNIQUE: Multiplanar, multisequence images of the brain and brainstem is performed without and with IV contras t, utilizing 9 mL intravenous Gadavist . Fast brain protocol was utilized. FINDINGS: Diffusion weighted images demonstrate no evidence of a recent infarct or other diffusion ab normality. There is no extra-axial fluid collection. There are periventricular hyperintensities henry cent to the posterior horn left lateral ventricle seen on inversion recovery T2-weighted sequences, c onfluent area measures approximately 11 mm in greatest AP dimension on axial image 19, 3-5 lesions ar e suspected. The ventricular system and cisternal spaces are normal in size and appearance. The brai n volume is age appropriate. Midline structures demonstrate normal morphology. The craniocervical junction appears within normal limits. Post contrast images demonstrate no abnormal enhancement. The dural venous sinuses appear pa tent. The visualized sinuses are still thickening in the ethmoid air cells, maxillary sinuses, fronta l sinus, and the globes are intact. IMPRESSION: Nonspecific white matter demyelination, consider migraine headaches, hypertension, vascul itis, multiple sclerosis in the appropriate clinical setting. Mild sinus disease.
--- NOTE | 2020-05-14 11:18 | MR ---
EXAMINATION TYPE: MR angio head wo con DATE OF EXAM: 05/14/2020 COMPARISON: MR brain same date HISTORY: New onset Seizures TECHNIQUE: Time of flight images focusing on the [place] were performed without contrast. Ru dimentary reconstructions performed on an alternate workstation. FINDINGS: Anterior posterior circulation is patent. Left vertebral artery is dominant. There is no ev ident aneurysm, dissection, or embolus. IMPRESSION: Normal [place] MRA.
== END | disposition home or self-care (01) ==
LOC: RADMRIMAIN 09:40
PROVIDERS: ATTEND Nurse Practitioner Acute Care
DX: G37.9 Demyelinating disease of central nervous system, unspecified (principal)
CPT/HCPCS: 70544; 70553; A9585

== ENCOUNTER 2021-02-22 18:10 | Emergency (ER) | payer MEDICARE, OTHER ==
[2021-02-22 20:39] VITALS: BP 121/76; TEMP 99
[2021-02-22] MEDS ORDERED: IPRATROPIUM-ALBUTEROL 3 ML NEB INHALATION STA (21:13)
--- NOTE | 2021-02-22 21:13 | ED ---
General Adult HPI - General Chief complaint: Shortness of Breath Stated complaint: SOB Time Seen by Provider: 02/22/21 21:04 Source: patient, EMS, RN notes reviewed, old records reviewed Mode of arrival: EMS Limitations: altered mental status - History of Present Illness Initial comments: 45-year-old male, alert and oriented 2 presents to the emergency room with complaints of shortness of breath cough and fever for the past 2 days. Patient states he did not get vaccine for coronavirus. He does have a history of asthma, bipolar and seizures. He denies any nausea vomiting, states did have diarrhea today. He denies any chest pain. He denies any headaches -: days(s) (2) Severity scale (1-10): 0 Consistency: constant Improves with: none Worsens with: none Associated Symptoms: cough, fever/chills, shortness of breath Treatments Prior to Arrival: none - Related Data Home Medications Medication Instructions Recorded Confirmed Baclofen 10 mg PO QID PRN 02/22/21 02/22/21 Benztropine Mesylate [Cogentin] 1 mg PO BID 02/22/21 02/22/21 Ibuprofen [Motrin] 400 mg PO TID PRN 02/22/21 02/22/21 levETIRAcetam [Keppra] 500 mg PO BID 02/22/21 02/22/21 risperiDONE 4 mg PO BID 02/22/21 02/22/21 traZODone HCL [Desyrel] 50 mg PO HS 02/22/21 02/22/21 Allergies Allergy/AdvReac Type Severity Reaction Status Date / Time No Known Allergies Allergy Verified 02/22/21 23:08 Review of Systems ROS Statement: Those systems with pertinent positive or pertinent negative responses have been documented in the HPI. ROS Other: All systems not noted in ROS Statement are negative. Past Medical History Past Medical History: Asthma History of Any Multi-Drug Resistant Organisms: None Reported Past Surgical History: No Surgical Hx Reported Past Psychological History: Bipolar Smoking Status: Former smoker Past Alcohol Use History: Occasional Past Drug Use History: None Reported General Exam Limitations: altered mental status General appearance: alert Head exam: Present: atraumatic, normocephalic, normal inspection Eye exam: Present: normal appearance, EOMI. Absent: scleral icterus, conjunctival injection, periorbital swelling, periorbital tenderness ENT exam: Present: mucous membranes moist, other (Oropharynx erythematous no exudates) Neck exam: Present: normal inspection, full ROM. Absent: tenderness, meningismus, lymphadenopathy, thyromegaly Respiratory exam: Present: normal lung sounds bilaterally. Absent: respiratory distress, wheezes, rales, rhonchi, stridor, chest wall tenderness, accessory muscle use, decreased breath sounds, prolonged expiratory Cardiovascular Exam: Present: tachycardia GI/Abdominal exam: Present: soft, normal bowel sounds. Absent: distended, tenderness, guarding, rebound, rigid Extremities exam: Present: full ROM, normal capillary refill. Absent: tenderness, pedal edema Back exam: Present: normal inspection, full ROM. Absent: tenderness, CVA tenderness (R), CVA tenderness (L), rash noted Neurological exam: Present: alert, normal gait Psychiatric exam: Present: normal affect, normal mood Skin exam: Present: warm, dry, intact, normal color. Absent: rash, cyanosis, diaphoretic, erythema, petechiae, pallor Course Vital Signs 02/22/21 02/22/21 02/22/21 20:33 21:07 21:48 Temperature 99.0 F Pulse Rate 101 H 84 Respiratory 20 20 20 Rate Blood Pressure 121/76 O2 Sat by Pulse 95 Oximetry 02/22/21 21:53 Temperature Pulse Rate 85 Respiratory 19 Rate Blood Pressure O2 Sat by Pulse Oximetry Medical Decision Making - Medical Decision Making This is a 45-year-old male presents to the emergency room with shortness of breath, cough and fever for the past 2 days. He has not been vaccinated against coronavirus. He has positive coronavirus test here in the emergency room. He was given monoclonal antibodies and tolerated them well. His vital signs are stable at discharge. He was directed to follow up with his primary care doctor next week and return to the emergency room with any new or worsening symptoms. - Lab Data Lab Results 02/22/21 Range/Units 21:25 Coronavirus (PCR) Detected A (Not Detectd) Disposition Clinical Impression: COVID-19 Disposition: HOME SELF-CARE Condition: Good Instructions (If sedation given, give patient instructions): Coronavirus Disease 2019 (COVID-19) Additional Instructions: Take Tylenol and/or Motrin as needed for fevers or body aches. You can also take vitamin C, vitamin D and zinc to improve your immune health. Follow-up with your primary care doctor this week. Return to the emergency room with any new or worsening symptoms including chest pain or worsening difficulty in breathing. Is patient prescribed a controlled substance at d/c from ED?: No Referrals: None,Stated [Primary Care Provider] - 1-2 days Time of Disposition: 23:51
[2021-02-22 21:54] VITALS: PULSE 85; RESP 19
[2021-02-22] MEDS ORDERED: BAMLANIVIMAB (EUA) 700 MG, ETESEVIMAB (EUA) 1,400 MG in SODIUM CHLORIDE 0.9% 50 ML IVPB ONE (22:30)
[2021-02-22] MEDS ORDERED: SODIUM CHLORIDE 0.9% 50 ML IVPB ONE (22:30)
== END 2021-02-23 00:26 | disposition home or self-care (01) ==
LOC: EC 18:10
DX: U07.1 COVID-19 (principal); J45.909 Unspecified asthma, uncomplicated; Z87.891 Personal history of nicotine dependence
CPT/HCPCS: 94640; 87635; 99284; 96374; J3490

== ENCOUNTER 2023-07-31 14:18 | Emergency (ER) | payer MEDICARE, OTHER ==
--- NOTE | 2023-07-31 14:55 | ED ---
Headache HPI - General Source: RN notes reviewed, old records reviewed Mode of arrival: ambulatory Limitations: no limitations <Aydin Billings - Last Filed: 07/31/23 14:54> - General Source: RN notes reviewed <Montana Diallo - Last Filed: 07/31/23 16:59> - General Chief Complaint: Headache Stated Complaint: SOB, headache - History of Present Illness Initial Comments: 48 male to the ED co migraine GODDARD for 2 days, no trauma, no fever, no neck pain or sore throat, no travel history or change in medications. (Aydin Billings) 48-year-old male presents to the ED with a chief complaint of headache. Patient reports over the last 2 days has had headache with some associated cough, congestion, rhinorrhea. Denies abdominal pain. Denies chest pain or shortness of breath. No changes in bowel or bladder habits. No fever or chills. No oth er complaints at this time. (Montana Diallo) - Related Data Home Medications Medication Instructions Recorded Confirmed Baclofen 10 mg PO QID PRN 02/22/21 02/22/21 Benztropine Mesylate [Cogentin] 1 mg PO BID 02/22/21 02/22/21 Ibuprofen [Motrin] 400 mg PO TID PRN 02/22/21 02/22/21 levETIRAcetam [Keppra] 500 mg PO BID 02/22/21 02/22/21 risperiDONE 4 mg PO BID 02/22/21 02/22/21 traZODone HCL [Desyrel] 50 mg PO HS 02/22/21 02/22/21 Previous Rx's Medication Instructions Recorded Acetaminophen Tab [Tylenol] 500 mg PO Q6H PRN #30 tablet 07/31/23 Ibuprofen [Motrin] 600 mg PO Q8HR PRN #30 tab 07/31/23 Ondansetron Odt [Zofran Odt] 4 mg PO Q8HR PRN #10 tab 07/31/23 Allergies Allergy/AdvReac Type Severity Reaction Status Date / Time No Known Allergies Allergy Verified 02/22/21 23:08 Review of Systems ROS Other: All systems not noted in ROS Statement are negative. <Aydin Billings - Last Filed: 04/29/24 14:54> ROS Other: All systems not noted in ROS Statement are negative. <Montana Diallo - Last Filed: 07/31/23 16:59> ROS Statement: Those systems with pertinent positive or pertinent negative responses have been documented in the HPI. Past Medical History Past Medical History: Asthma History of Any Multi-Drug Resistant Organisms: None Reported Past Surgical History: No Surgical Hx Reported Past Psychological History: Bipolar Smoking Status: Former smoker Past Alcohol Use History: Occasional Past Drug Use History: None Reported <ManuelitoMorganwilder Mcqueen - Last Filed: 07/31/23 14:54> General Exam Limitations: no limitations General appearance: alert, in no apparent distress Head exam: Present: atraumatic, normocephalic, normal inspection Eye exam: Present: normal appearance, PERRL, EOMI. Absent: scleral icterus, conjunctival injection, periorbital swelling ENT exam: Present: normal exam, mucous membranes moist Neck exam: Present: normal inspection. Absent: tenderness, meningismus, lymphadenopathy Respiratory exam: Present: normal lung sounds bilaterally. Absent: respiratory distress, wheezes, rales, rhonchi, stridor Cardiovascular Exam: Present: regular rate, normal rhythm, normal heart sounds. Absent: systolic murmur, diastolic murmur, rubs, gallop, clicks GI/Abdominal exam: Present: soft, normal bowel sounds. Absent: distended, tenderness, guarding, rebound, rigid Extremities exam: Present: normal inspection, full ROM, normal capillary refill. Absent: tenderness, pedal edema, joint swelling, calf tenderness Back exam: Present: normal inspection Neurological exam: Present: alert, oriented X3, CN II-XII intact Psychiatric exam: Present: normal affect, normal mood Skin exam: Present: warm, dry, intact, normal color. Absent: rash <Ryan Billingskhoa Mcqueen - Last Filed: 07/31/23 14:54> General appearance: alert, in no apparent distress Head exam: Present: atraumatic, normocephalic Eye exam: Present: normal appearance ENT exam: Present: mucous membranes moist Neck exam: Present: normal inspection Respiratory exam: Present: normal lung sounds bilaterally Cardiovascular Exam: Present: regular rate GI/Abdominal exam: Present: soft. Absent: distended, tenderness, guarding, rebound, rigid Extremities exam: Present: normal inspection Neurological exam: Present: alert, oriented X3, CN II-XII intact Skin exam: Present: warm, dry <Montana Diallo - Last Filed: 07/31/23 16:59> Course <Aydin Billings - Last Filed: 07/31/23 14:54> Vital Signs 07/31/23 14:52 Temperature 98.9 F Pulse Rate 125 H Respiratory 18 Rate Blood Pressure 118/82 O2 Sat by Pulse 94 L Oximetry - Reevaluation(s) Reevaluation #1: 07/31/23 14:55 QN completed by myself Dr Billings (Aydin Billings) Medical Decision Making <Montana Diallo - Last Filed: 07/31/23 16:59> - Medical Decision Making Was pt. sent in by a medical professional or institution (, PA, OVERLOCK SLEEVE SETTER, urgent care, hospital, or care home...) When possible be specific @ -No Did you speak to anyone other than the patient for history (EMS, parent, family, police, friend...)? What history was obtained from this source @ -No Did you review nursing and triage notes (agree or disagree)? Why? @ -I reviewed and agree with nursing and triage notes Were old charts reviewed (outside hosp., previous admission, EMS record, old EKG, old radiological studies, urgent care reports/EKG's, care home records)? Report findings @ -No old charts were reviewed Differential Diagnosis (chest pain, altered mental status, abdominal pain women, abdominal pain men, vaginal bleeding, weakness, fever, dyspnea, syncope, headache, dizziness, GI bleed, back pain, seizure, CVA, palpatations, mental health, musculoskeletal)? @ -Differential Fever: Pneumonia, viral URI, endocarditis, myocarditis, pericarditis, otitis, sinusitis, peritonsillar Abscess, retropharyngeal Abscess, epiglottitis, peritonitis, appendicitis, Layla cystitis, diverticulitis, hepatitis, colitis, UTI, PID, TOA, pyelonephritis, prostatitis, epididymitis, meningitis, encephalitis, pulmonary embolism, CVA, thyroid storm, pancreatitis, adrenal crisis, cavernous sinus thrombosis, this is not meant to be an all-inclusive list. EKG interpreted by me (3pts min.). @ -None X-rays interpreted by me (1pt min.). @ -Chest x-ray interpreted me which reveals no evidence of acute finding. CT interpreted by me (1pt min.). @ -None done U/S interpreted by me (1pt. min.). @ -None done What testing was considered but not performed or refused? (CT, X-rays, U/S, labs)? Why? @ -None What meds were considered but not given or refused? Why? @ -None Did you discuss the management of the patient with other professionals (professionals i.e. , PA, OVERLOCK SLEEVE SETTER, lab, RT, psych nurse, nephrology social worker, marketing area manager, teacher, corporate responsibility officer, child support case officer)? Give summary @ -No Was smoking cessation discussed for >3mins.? @ -No Was critical care preformed (if so, how long)? @ -No Were there social determinants of health that impacted care today? How? (Homelessness, low income, unemployed, alcoholism, drug addiction, transportation, low edu. Level, literacy, decrease access to med. care, senior care, rehab)? @ -No Was there de-escalation of care discussed even if they declined (Discuss DNR or withdrawal of care, Hospice)? DNR status @ -No What co-morbidities impacted this encounter? (DM, HTN, Smoking, COPD, CAD, Cancer, CVA, ARF, Chemo, Hep., AIDS, mental health diagnosis, sleep apnea, morbid obesity)? @ -None Was patient admitted / discharged? Hospital course, mention meds given and route, prescriptions, significant lab abnormalities, going to OR and other pertinent info. @ -Discharge 48-year-old male presents to the ED with 2 days of headache, cough, congestion, nausea. Examination benign at this time. Chest x-ray revealed no evidence of acute finding. After medications, patient reports significant improvement of his symptoms. Symptoms likely viral in nature. Serology panel at this time unremarkable. Discharged home in stable condition with instructions to closely follow-up with primary care provider. Discussed return precautions with patient who verbalized agreement. Undiagnosed new problem with uncertain prognosis? @ -No Drug Therapy requiring intensive monitoring for toxicity (Heparin, Nitro, Insulin, Cardizem)? @ -No Were any procedures done? @ -No Diagnosis/symptom? @ -Viral URI Acute, or Chronic, or Acute on Chronic? @ -Acute Uncomplicated (without systemic symptoms) or Complicated (systemic symptoms)? @ -Uncomplicated Side effects of treatment? @ -No Exacerbation, Progression, or Severe Exacerbation? @ -No Poses a threat to life or bodily function? How? (Chest pain, [place], [place], pneumonia, PE, COPD, DKA, ARF, appy, cholecystitis, CVA, Diverticulitis, Homicidal, Suicidal, threat to staff... and all critical care pts) @ -No (Montana Diallo) - Lab Data Lab Results 07/31/23 Range/Units 15:46 Influenza Type A (PCR) Not Detected (Not Detectd) Influenza Type B (PCR) Not Detected (Not Detectd) RSV (PCR) Not Detected (Not Detectd) SARS-CoV-2 (PCR) Not Detected (Not Detectd) Disposition <Aydin Billings - Last Filed: 07/31/23 14:54> Is patient prescribed a controlled substance at d/c from ED?: No Time of Disposition: 16:59 <Montana Diallo - Last Filed: 07/31/23 16:59> Clinical Impression: Viral URI Disposition: HOME SELF-CARE Condition: Good Instructions (If sedation given, give patient instructions): Acute Headache (ED), Upper Respiratory Infection (ED) Additional Instructions: Please return to the Emergency Department if symptoms worsen or any other concerns. Please follow-up with your primary care provider. Prescriptions: Ibuprofen [Motrin] 600 mg PO Q8HR PRN #30 tab PRN Reason: Pain Acetaminophen Tab [Tylenol] 500 mg PO Q6H PRN #30 tablet PRN Reason: Pain Ondansetron Odt [Zofran Odt] 4 mg PO Q8HR PRN #10 tab PRN Reason: Nausea Referrals: Misbah Villanueva MD [Primary Care Provider] - 1-2 days
[2023-07-31 15:19] VITALS: RESP 18
[2023-07-31] MEDS: ETODOLAC 400 MG TAB PO STA (15:36)
[2023-07-31] MEDS: diphenhydrAMINE 50 MG CAP PO STA (15:36)
[2023-07-31] MEDS: PROCHLORPERAZINE 10 MG TAB PO STA (15:36)
--- NOTE | 2023-07-31 16:06 | XR ---
EXAMINATION TYPE: XR chest 2V DATE OF EXAM: 07/31/2023 COMPARISON: 08/21/2012 INDICATION: Headache and blurred vision TECHNIQUE: Frontal and lateral views of the chest are obtained. FINDINGS: The heart size is normal. The pulmonary vasculature is normal. The lungs are clear. IMPRESSION: 1. No acute pulmonary process.
[2023-07-31 17:20] VITALS: BP 131/78; PULSE 104; TEMP 98.1
== END 2023-07-31 17:17 | disposition home or self-care (01) ==
LOC: EC 14:18
DX: J06.9 Acute upper respiratory infection, unspecified (principal); Z87.891 Personal history of nicotine dependence
CPT/HCPCS: 87636; 71046; 99284; S0183

== ENCOUNTER 2024-04-25 15:40 | Inpatient (IN) | payer MEDICARE, MEDICAID ==
--- NOTE | 2024-04-25 16:32 | XR ---
EXAMINATION TYPE: XR hand complete RT DATE OF EXAM: 04/25/2024 4:29 PM COMPARISON: None. CLINICAL INDICATION: Male, 49 years old with history of pain, pain TECHNIQUE: 3 view(s) obtained. FINDINGS: There is a fracture of the distal fifth metacarpal with anterior angulation of the distal fracture fr agment. Joint spaces are preserved. No additional fractures evident. Soft tissue swelling over the fracture s ite. IMPRESSION: 1. Fracture of the distal fifth metacarpal with anterior angulation of the distal fracture fragment. Soft tissue swellings at the fracture site. [facility], Workstation: [facility], 04/25/2024 4:30 PM
--- NOTE | 2024-04-25 16:44 | ED ---
General Adult HPI - General Chief complaint: Psychiatric Symptoms Stated complaint: Petition,R hand injury Time Seen by Provider: 04/25/24 16:23 Source: patient, RN notes reviewed Mode of arrival: ambulatory Limitations: no limitations - History of Present Illness Initial comments: Patient is a 49-year-old male presenting to the emergency department with concern for anger and right hand injury. Patient admits to being angry and punching a refrigerator. Patient is concerned he may have broke his hand. No history of significant injury here previously. No other area of injury or concern. Patient denies suicidal or homicidal ideation. Patient states he was angry however did not threaten to hurt anybody. No other physical complaints. No hallucinations. No alcohol or street drug use. - Related Data Home Medications Medication Instructions Recorded Confirmed levETIRAcetam [Keppra] 500 mg PO BID 02/22/21 04/25/24 hydrOXYzine HCL [Atarax] 50 mg PO TID PRN 04/25/24 04/25/24 risperiDONE [RisperDAL] 1 mg PO BID@0900,1500 04/25/24 04/25/24 risperiDONE [RisperDAL] 2 mg PO HS 04/25/24 04/25/24 traZODone HCL [Desyrel] 200 mg PO HS 04/25/24 04/25/24 Allergies Allergy/AdvReac Type Severity Reaction Status Date / Time No Known Allergies Allergy Verified 04/25/24 17:26 Review of Systems ROS Statement: Those systems with pertinent positive or pertinent negative responses have been documented in the HPI. ROS Other: All systems not noted in ROS Statement are negative. Constitutional: Denies: fever Eyes: Denies: eye pain ENT: Denies: ear pain Musculoskeletal: Reports: as per HPI Psychiatric: Reports: as per HPI Past Medical History Past Medical History: Asthma History of Any Multi-Drug Resistant Organisms: None Reported Past Surgical History: No Surgical Hx Reported Past Psychological History: Bipolar Smoking Status: Former smoker Past Alcohol Use History: Occasional Past Drug Use History: None Reported General Exam Limitations: no limitations General appearance: alert, in no apparent distress Head exam: Present: normocephalic Eye exam: Present: normal appearance Neck exam: Present: normal inspection. Absent: tenderness Respiratory exam: Present: normal lung sounds bilaterally Cardiovascular Exam: Present: regular rate, normal rhythm GI/Abdominal exam: Present: soft. Absent: tenderness Extremities exam: Present: other (Right ulnar side of the hand with swelling and mild tenderness. Distally the extremity is neurovascular intact) Neurological exam: Present: alert. Absent: motor sensory deficit Psychiatric exam: Present: normal affect, normal mood Skin exam: Present: normal color Course Vital Signs 04/25/24 04/25/24 04/25/24 16:07 16:51 17:14 Temperature 98.6 F Pulse Rate 125 H 118 H 101 H Respiratory 20 18 18 Rate Blood Pressure 134/90 O2 Sat by Pulse 97 97 96 Oximetry Procedures - Orthopedic Splinting/Casting Injury #1 Side: right Upper Extremity Injury Location: short arm, hand Upper Extremity Immobilizer: volar splint, ulnar gutter Medical Decision Making - Medical Decision Making Was pt. sent in by a medical professional or institution (, PA, NURSE EXAMINER, urgent care, hospital, or [facility]...) When possible be specific @ -Patient was sent in from group Did you speak to anyone other than the patient for history (EMS, parent, family, police, friend...)? What history was obtained from this source @ -No Did you review nursing and triage notes (agree or disagree)? Why? @ -I reviewed and agree with nursing and triage notes Were old charts reviewed (outside hosp., previous admission, EMS record, old EKG, old radiological studies, urgent care reports/EKG's, [facility] records)? Report findings @ -No old charts were reviewed Differential Diagnosis (chest pain, altered mental status, abdominal pain women, abdominal pain men, vaginal bleeding, weakness, fever, dyspnea, syncope, headache, dizziness, GI bleed, back pain, seizure, CVA, palpatations, mental health, musculoskeletal)? @ -Differential Mental Health Depression, anxiety, bipolar, psychosis, schizophrenia, borderline personality, situational depression, adjustment disorder, behavioral disorder, brain tumor, malingering, substance abuse, encephalopathy, medication reaction, dementia, hypothyroidism, degenerative neurologic disorder, lupus.... This is not meant to be all-inclusive list differential Musculoskeletal Muscular strain, contusion, ligament sprain, fracture, arthritis, septic arthritis, bursitis, cellulitis, muscle spasm, nerve compression, DVT, arterial occlusion, herpes zoster, electrolyte abnormality, tumor.... This is not meant to be in all inclusive list EKG interpreted by me (3pts min.). @ -As above X-rays interpreted by me (1pt min.). @ -X-ray right hand with distal fifth metacarpal fracture CT interpreted by me (1pt min.). @ -None done U/S interpreted by me (1pt. min.). @ -None done What testing was considered but not performed or refused? (CT, X-rays, U/S, labs)? Why? @ -None What meds were considered but not given or refused? Why? @ -None Did you discuss the management of the patient with other professionals (professionals i.e. , PA, NURSE EXAMINER, lab, RT, psych nurse, foster care social worker, spinneret cleaner, teacher, protocol officer, social work case manager)? Give summary @ -Case discussed with psychiatric nurse with plans for psychiatric admission Was smoking cessation discussed for >3mins.? @ -No Was critical care preformed (if so, how long)? @ -No Were there social determinants of health that impacted care today? How? (Homelessness, low income, unemployed, alcoholism, drug addiction, transportation, low edu. Level, literacy, decrease access to med. care, alf, rehab)? @ -No Was there de-escalation of care discussed even if they declined (Discuss DNR or withdrawal of care, Hospice)? DNR status @ -No What co-morbidities impacted this encounter? (DM, HTN, Smoking, COPD, CAD, Cancer, CVA, ARF, Chemo, Hep., AIDS, mental health diagnosis, sleep apnea, morbid obesity)? @ -None Was patient admitted / discharged? Hospital course, mention meds given and route, prescriptions, significant lab abnormalities, going to OR and other pertinent info. @ -Patient presents with anger issues and threats and punch with hand fracture. This has been splinted. Patient to be admitted for psychiatric Undiagnosed new problem with uncertain prognosis? @ -No Drug Therapy requiring intensive monitoring for toxicity (Heparin, Nitro, Insulin, Cardizem)? @ -No Were any procedures done? @ -Splint, see above Diagnosis/symptom? @ -Hand fracture, bipolar Acute, or Chronic, or Acute on Chronic? @ -Acute, acute Uncomplicated (without systemic symptoms) or Complicated (systemic symptoms)? @ -Default Side effects of treatment? @ -No Exacerbation, Progression, or Severe Exacerbation? @ -No Poses a threat to life or bodily function? How? (Chest pain, [place], [place], pneumonia, PE, COPD, DKA, ARF, appy, cholecystitis, CVA, Diverticulitis, Homicidal, Suicidal, threat to staff... and all critical care pts) @ -No - Lab Data Lab Results 04/25/24 04/25/24 Range/Units 16:51 16:55 Urine Opiates Screen Not Detected (NotDetected) Ur Oxycodone Screen Not Detected (NotDetected) Urine Methadone Screen Not Detected (NotDetected) Ur Barbiturates Screen Not Detected (NotDetected) U Tricyclic Antidepress Not Detected (NotDetected) Ur Phencyclidine Scrn Not Detected (NotDetected) Ur Amphetamines Screen Not Detected (NotDetected) U Methamphetamines Scrn Not Detected (NotDetected) U Benzodiazepines Scrn Not Detected (NotDetected) Urine Cocaine Screen Not Detected (NotDetected) U Marijuana (THC) Screen Not Detected (NotDetected) SARS-CoV-2 (PCR) Not Detected (Not Detectd) Disposition Clinical Impression: Right hand fracture, Bipolar disorder Disposition: TRANSFER TO PSYCH HOSP/UNIT Is patient prescribed a controlled substance at d/c from ED?: No Referrals: Jayson Bosch DO [Primary Care Provider] - 1-2 days Howard Orlando DO [Doctor of Osteopathic Medicine] - 1-2 days Time of Disposition: 19:08
[2024-04-25 17:14] LABS: Amphetamine Screen,Urine Not Detected (NotDetected); Barbiturate Screen,Urine Not Detected (NotDetected); Benzodiazepines Screen,Urine Not Detected (NotDetected); Cocaine Screen,Urine Not Detected (NotDetected); Methadone Screen, Urine Not Detected (NotDetected); Opiate Screen,Urine Not Detected (NotDetected); Oxycodone Screen, Urine Not Detected (NotDetected); Phencyclidine Screen,Urine Not Detected (NotDetected); Tricyclic Antidepressant,Urine Not Detected (NotDetected); Urn Cannabinoid Scrn Not Detected (NotDetected)
[2024-04-25] MEDS ORDERED: MAGNESIUM HYDROXIDE 2,400 MG/30 ML CUP PO PRN (22:54)
[2024-04-25] MEDS ORDERED: MAG HYDROX/AL HYDROX/SIMETH 355 ML BOTTLE PO PRN (22:54)
[2024-04-25] MEDS ORDERED: HALOPERIDOL LACTATE 5 MG/ML 1 ML VIAL IM PRN (22:54)
[2024-04-25] MEDS: traZODone HCL 100 MG TAB PO SCH (23:39)
[2024-04-25] MEDS: risperiDONE 1 MG TAB PO SCH (23:40)
[2024-04-25] MEDS: levETIRAcetam 500 MG TAB PO SCH (23:40)
[2024-04-26 00:27] LABS: Appearance,Urine Clear (Clear); Bilirubin,Urine Negative (Negative); Blood,Urine Negative (Negative); Color,Urine Colorless; Glucose,Urine (UA) Negative (Negative); Ketones,Urine Negative (Negative); Leukocyte Esterase,Urine Negative (Negative); Nitrite,Urine Negative (Negative); PH, Urine 5.5 (5.0-8.0); Protein,Urine Negative (Negative); Specific Gravity,Urine 1.007 (1.001-1.035); Urobilinogen,Urine <2.0 mg/dL (<2.0)
[2024-04-26] MEDS: NICOTINE 14MG/24HR PATCH TRANSDERM SCH (09:11)
[2024-04-26] MEDS: risperiDONE 1 MG TAB PO SCH (09:11)
[2024-04-26] MEDS: ACETAMINOPHEN TAB 325 MG TAB PO PRN (09:12)
--- NOTE | 2024-04-26 12:34 | P.HP ---
Psychiatric H&P - . H&P Date: 04/26/24 History & Physical: Allergies Allergy/AdvReac Type Severity Reaction Status Date / Time No Known Allergies Allergy Verified 04/25/24 17:26 Vital Signs Temp 97.4 F L 04/26/24 06:43 Pulse 114 H 04/26/24 06:43 Resp 18 04/25/24 21:19 BP 117/80 04/26/24 06:43 Pulse Ox 95 04/26/24 06:43 FiO2 Intake & Output 04/25/24 04/26/24 04/26/24 18:59 06:59 18:59 Weight 97.522 kg 97.9 kg Laboratory Last Values Urine Color Colorless 04/25/24 16:51 Urine Appearance Clear (Clear) 04/25/24 16:51 Urine pH 5.5 (5.0-8.0) 04/25/24 16:51 Ur Specific Flippin 1.007 (1.001-1.035) 04/25/24 16:51 Urine Protein Negative (Negative) 04/25/24 16:51 Urine Glucose (UA) Negative (Negative) 04/25/24 16:51 Urine Ketones Negative (Negative) 04/25/24 16:51 Urine Blood Negative (Negative) 04/25/24 16:51 Urine Nitrite Negative (Negative) 04/25/24 16:51 Urine Bilirubin Negative (Negative) 04/25/24 16:51 Urine Urobilinogen <2.0 mg/dL (<2.0) 04/25/24 16:51 Ur Leukocyte Esterase Negative (Negative) 04/25/24 16:51 Urine Opiates Screen Not Detected (NotDetected) 04/25/24 16:51 Ur Oxycodone Screen Not Detected (NotDetected) 04/25/24 16:51 Urine Methadone Screen Not Detected (NotDetected) 04/25/24 16:51 Ur Barbiturates Screen Not Detected (NotDetected) 04/25/24 16:51 U Tricyclic Antidepress Not Detected (NotDetected) 04/25/24 16:51 Ur Phencyclidine Scrn Not Detected (NotDetected) 04/25/24 16:51 Ur Amphetamines Screen Not Detected (NotDetected) 04/25/24 16:51 U Methamphetamines Scrn Not Detected (NotDetected) 04/25/24 16:51 U Benzodiazepines Scrn Not Detected (NotDetected) 04/25/24 16:51 Urine Cocaine Screen Not Detected (NotDetected) 04/25/24 16:51 U Marijuana (THC) Screen Not Detected (NotDetected) 04/25/24 16:51 SARS-CoV-2 (PCR) Not Detected (Not Detectd) 04/25/24 16:55 04/26/24 12:24 IDENTIFYING DATA: Patient is a 49-year-old male, with a guardian, on disability and living at home of your own CHIEF COMPLAINT: Increased aggression HPI: Patient presented to the hospital with concerns for anger and right hand injury. EPS note revealed, "Patient brought to ER by casework specialist related to hand fracture from hitting a refrigerator. Patient assessed in ER13 from 174- 1755. Patient states "I was mad because she was suppose to pick me up and she was late, its cold out there". Patient verbalizes feeling overwhelmed and angry so he hit the refrigerator. Patient verbalizes getting into a verbal altercation with is roommate and his casework specialist was coming to get him. Patient lives in a "Home of your own" according to casework specialist, Emily. Per Emily, this is similar to a skilled nursing, however there is no staff in the home. States that staff go to the home to assist patients during the day for medications and ass istance as needed. Per emily, patient has two roommates and is constantly making threatening statements and gestures. Per emily, Patient last week lines knives on the counter and told his roommate he was "going to get him". Patient has not had any physical altercations at this time. Patient has mild developmental delay, verbalizes hx of seizure disorder. Patient verbalizes being compliant of his home medications. Patient denies alcohol or substance use. Patient denies complaints with appetite or sleep, appears to have fair hygiene. Patient verbalizes auditory hallucinations of "people telling me to kill myself and do bad things to myself". Patient verbalizes the voices are talking to him right now. Patient verbalizes visual hallucinations of "visions of mirela". Patient states he has not had any visual hallucinations in approx 1 week. Patient petitioned by his casework specialist Emily related to outbursts and threat to others. Emily states patient was last inpatient last month (March 2024) and he has been back home for approx 2-3 weeks." Patient seen and evaluated on the unit and was agreeable with speaking to poem writer in office. He states slipping and falling yesterday and became upset when someone at his house began making fun of him. He states he punched a refrigerator and injured his right hand and ultimately was brought to the ED. He states being remorseful for his behavior and he is hopeful to return back to his home. He denied any sleep or appetite changes, anhedonia but did report feeling down at times, mood swings. Patient denies any suicidal or homicidal ideations intent or plan. At this time patient denies any auditory or visual hallucinations. Patient denies any flight of ideas racing thoughts and increased in goal directed behavior. Patient admits to using no substances. PAST PSYCHIATRIC HISTORY: Patient has a history of schizoaffective disorder bipolar type, alcohol use disorder in remission, intellectual disability. Patient is currently prescribed Risperdal 1 mg twice daily and 2 mg at bedtime, trazodone 200 mg at bedtime, hydroxyzine as needed. Patient states he most recently was hospitalized 2 weeks ago. Sees Emily Meadows BIOMATHEMATICIAN at [facility]. Patient denies any history of suicide attempts in the past. PMH: as per ER note. History of seizures however last seizure was 4 years ago per patient ALLERGIES: as per EMR SUBSTANCE USE HISTORY: Denies FAMILY PSYCHIATRIC/SUBSTANCE USE HISTORY: He states being unsure of his family history SOCIAL HISTORY: Patient has no children, is single and currently living at Home of Your Own. He has a public guardian, completed school up to ninth grade. MENTAL STATUS EXAM: General Appearance: Patient appears to be older than stated age is alert, directable, and attempts to cooperate. Patient appears to have fair hygiene and grooming. He has a cast on his right upper extremity Behavior: Patient is seated without any agitated behavior. Speech: Patient's speech is fluent and nonpressured. Mood/Affect: Patient reports their mood is depressed, affect is congruent and constricted. Suicidality/Homicidality: Patient denies having any homicidal ideation intent or plan. Denies any suicidal ideations intent or plan Perceptions: Patient denies any visual hallucinations and denies any auditory hallucinations Though content/process: There is no evidence of any delusional thought content and thought process is linear and logical. Memory and concentration: AOX3, grossly intact for the purposes of this session. Can spell "WORLD" backwards Judgment and insight: Poor STRENGTHS/WEAKNESSES: strength is that patient is resilient and has a guardian. Weakness is that patient has poor judgment and is impulsive INTELLECT: Below average IMPRESSIONS: Schizoaffective disorder, bipolar type Intellectual disability PLAN: -Patient is admitted under voluntary status to [facility]HU for stabilization of psychiatric symptoms and safety. Patient has signed adult voluntary form and medication consent and is placed in patient's chart. -Medications : Start Depakote 250 mg twice daily for mood stabilization, continue Risperdal 1 mg twice daily and 2 mg at bedtime for schizoaffective disorder, trazodone 200 mg at bedtime for sleep -Ativan and Haldol PRN for agitation/aggression -Patient was informed of the risks, benefits and side effects of the medication and patient verbally consented to taking the medications. Patient signed med consent form and was placed in chart. -Internal Medicine consult to perform medical evaluation and physical. -NRT -not needed as patient does not smoke -SW on board for discharge planning. Encourage patient to participate in groups to work on coping skills. Anticipate discharge back home early next week
--- NOTE | 2024-04-26 14:28 | P.MDCNMH ---
History of Present Illness H&P Date: 04/26/24 History of present illness; patient is a 49-year-old gentleman with past medical history significant for schizoaffective disorder who was presented to the ER for anger issues. Patient apparently in anger hit his right hand against a refrigerator resulting in injury to his right hand. Patient admits that he cannot control his anger gets into frequent verbal altercations. Patient denies any auditory or visual hallucinations. Patient was brought by guardian to the ER UA negative for infection Urine drug screen negative COVID-19 negative Patient admitted to inpatient psych REVIEW OF SYSTEMS: CONSTITUTIONAL: No fever, no malaise, no fatigue. HEENT: No recent visual problems or hearing problems. Denied any sore throat. CARDIOVASCULAR: No chest pain, orthopnea, PND, no palpitations, no syncope. PULMONARY: No shortness of breath, no cough, no hemoptysis. GASTROINTESTINAL: No diarrhea, no nausea, no vomiting, no abdominal pain. NEUROLOGICAL: No headaches, no weakness, no numbness. HEMATOLOGICAL: Denies any bleeding or petechiae. GENITOURINARY: Denies any burning micturition, frequency, or urgency. MUSCULOSKELETAL/RHEUMATOLOGICAL: Denies any joint pain, swelling, or any muscle pain. ENDOCRINE: Denies any polyuria or polydipsia. The rest of the 14-point review of systems is negative. PHYSICAL EXAMINATION: GENERAL: The patient is alert and oriented x3, not in any acute distress. Well developed, well nourished. HEENT: Pupils are round and equally reacting to light. EOMI. No scleral icterus. No conjunctival pallor. Normocephalic, atraumatic. No pharyngeal erythema. No thyromegaly. CARDIOVASCULAR: S1 and S2 present. No murmurs, rubs, or gallops. PULMONARY: Chest is clear to auscultation, no wheezing or crackles. ABDOMEN: Soft, nontender, nondistended, normoactive bowel sounds. No palpable organomegaly. MUSCULOSKELETAL: No joint swelling or deformity. Right hand because seen EXTREMITIES: No cyanosis, clubbing, or pedal edema. NEUROLOGICAL: Gross neurological examination did not reveal any focal deficits. SKIN: No rashes. Assessment and plan Fracture of the distal fifth metacarpal of right hand Schizoaffective disorder, bipolar type Intellectual disability Monitor vital signs Monitor CBC Monito elopement precautions Continue psych meds per psychiatry team Labs and medication were reviewed.. Continue same treatment. Continue with symptomatic treatment. Resume home medication. Monitor labs and vitals. DVT and GI prophylaxis. Further recommendations as per clinical course of the patient Dictation was produced using [employer] dictation software. please excuse any grammatical, word or spelling errors. Past Medical History Past Medical History: Asthma, Seizure Disorder History of Any Multi-Drug Resistant Organisms: None Reported Past Surgical History: No Surgical Hx Reported Past Psychological History: Bipolar Smoking Status: Former smoker Past Alcohol Use History: Occasional Past Drug Use History: None Reported Medications and Allergies Home Medications Medication Instructions Recorded Confirmed Type levETIRAcetam [Keppra] 500 mg PO BID 02/22/21 04/25/24 History hydrOXYzine HCL [Atarax] 50 mg PO TID PRN 04/25/24 04/25/24 History risperiDONE [RisperDAL] 1 mg PO BID@0900,1500 04/25/24 04/25/24 History risperiDONE [RisperDAL] 2 mg PO HS 04/25/24 04/25/24 History traZODone HCL [Desyrel] 200 mg PO HS 04/25/24 04/25/24 History Allergies Allergy/AdvReac Type Severity Reaction Status Date / Time No Known Allergies Allergy Verified 04/25/24 17:26 Physical Exam Vitals: Vital Signs Temp Pulse Pulse Resp BP BP Pulse Ox 04/26/24 06:43 97.4 F L 114 H 117/80 95 04/25/24 21:19 98.7 F 100 18 118/77 96 04/25/24 21:04 97.2 F L 98 16 128/78 99 04/25/24 17:14 101 H 18 96 04/25/24 16:51 118 H 18 97 04/25/24 16:07 98.6 F 125 H 20 134/90 97 Intake and Output 04/25/24 04/26/24 04/26/24 22:59 06:59 14:59 Other: Weight 97.9 kg Cranial Nerve Examination - Cranial Nerves Cranial Nerve II- Optic: Intact (Cranial nerves II to XII intact) Cranial Nerve III- Oculomotor: Intact Cranial Nerve IV- Trochlear: Intact Cranial Nerve V- Trigeminal: Intact Cranial Nerve - Abducens: Intact Cranial Nerve VII- Facial: Intact Cranial Nerve VIII- Auditory: Intact Cranial Nerve IX- Glossopharyngeal: Intact Cranial Nerve X- Vagus: Intact Cranial Nerve XI- Accessory: Intact Cranial Nerve XII- Hypoglossal: Intact
[2024-04-26] MEDS: LORazepam 1 MG TAB PO PRN (15:59)
[2024-04-26] MEDS: haloperidoL 5 MG TAB PO PRN (15:59)
[2024-04-26] MEDS: IBUPROFEN 600 MG TAB PO PRN (16:02)
[2024-04-26] MEDS: DIVALPROEX 250 MG TABLET.DR PO SCH (21:30)
[2024-04-27] MEDS: hydrOXYzine HCL 25 MG TAB PO PRN (08:17)
[2024-04-27] MEDS: LORazepam 2 MG/ML INJ IM PRN (09:32)
[2024-04-27] MEDS: ZIPRASIDONE 20 MG VIAL IM STA (09:32)
[2024-04-27] MEDS ORDERED: ZIPRASIDONE 20 MG VIAL IM PRN (11:30)
--- NOTE | 2024-04-27 11:33 | P.PN ---
Progress Note - Text Progress Note Date: 04/27/24 Interval history: Patient was seen laying in bed today and was approached by job specification writer for interview today. Patient apparently was agitated earlier on aggressive and sexually inappropriate with nursing staff. Patient received Geodon and Ativan IM. Patient was seen today and was asked several questions however patient was fairly lethargic, unable to respond and answer questions appropriately, he turned away and went to sleep. Mental status exam: General Appearance: Patient appears to be overweight, stated age is fairly lethargic, uncooperative Behavior: No agitated behavior. Patient is calm and directable laying in bed Speech: Patient's speech is difficult to comprehend, mumbling Mood/Affect: Able to assess Suicidality/Homicidality: Unable to assess Perceptions: Unable to assess Though content/process: Unable to assess Memory and concentration: Unable to assess Judgment and insight: Poor/impulsive Assessment/Plan: Continue with current diagnosis. Patient continues to meet criteria for inpatient psychiatric admission for symptom stabilization and safety. Patient will be maintained on current psychotropic medication regimen, with the exception of adding Geodon IM as a as needed for severe agitation. Also increase Depakote to 500 mg twice daily. Monitor for medication compliance and for any psychotropic medication side effects. Will continue to monitor ongoing response to treatment. Encouraged participation in milieu.
[2024-04-27] MEDS: DIVALPROEX 500 MG TABLET.DR PO SCH (21:06)
--- NOTE | 2024-04-28 11:10 | P.PN ---
Progress Note - Text Progress Note Date: 04/28/24 Interval history: Patient was seen laying in bed today and was approached by selling underwriter for interview today. He was able to set up, he appears to be fairly calm today, cooperative with selling underwriter. States that he has been more cooperative with staff today, not causing any issues. Claims that he feels a bit calmer, denying any depression at this time or anxiety. States that he is able to sleep fairly last night has been eating well. States that he wants to know when he is going to be discharged. At this time he is denying any suicidal homicidal ideations intent or plan denying any auditory or visual hallucinations. Mental status exam: General Appearance: Patient appears to be overweight, stated age is alert, attempts to cooperate Behavior: No agitated behavior. Patient is calm, directable Speech: Patient's speech is clear, nonpressured Mood/Affect: Claims that his mood is improving, affect is improving Suicidality/Homicidality: Denies Perceptions: Denies Though content/process: [place], more goal oriented Memory and concentration: Alert and oriented x 3, follows direction and commands Judgment and insight: Poor, improving mildly Assessment/Plan: Continue with current diagnosis. Patient continues to meet criteria for inpatient psychiatric admission for symptom stabilization and safety. Patient will be maintained on current psychotropic medication regimen. Monitor for medication compliance and for any psychotropic medication side effects. Will continue to monitor ongoing response to treatment. Encouraged participation in milieu.
[2024-04-29 06:58] VITALS: RESP 16
--- NOTE | 2024-04-29 10:58 | P.PN ---
Progress Note - Text Progress Note Date: 04/29/24 Interval History: Patient was seen laying in bed and was directable and agreeable to speak with typewriter operator automatic in the office. He expressed no concerns and denied any issues over the weekend. He states he has been attempting to work on his anger and that he wishes to return home. He states he has been reading his Bible which has been helpful. Discussed with patient concerns with medication nonadherence and he was agreeable with transitioning to NATARAJAN today. At this time patient denies any suicidal or homicidal ideations, intent or plan. Patient denies any auditory, visual hallucinations and denies any paranoia or delusions. Patient denies any side effects from the medications and has been compliant with meds. Mental Status Exam: General Appearance: Patient appears to be stated age is alert, directable, and cooperative. He has a cast on his right upper extremity Behavior: Patient is calmly seated without any agitated behavior. Speech: Patient's speech is fluent and nonpressured. Mood/Affect: Mood is improving mildly, affect is congruent and constricted. Suicidality/Homicidality: Patient denies having any suicidal or homicidal ideation intent or plan. Perceptions: Patient denies any visual hallucinations and denies any auditory hallucinations Though content/process: There is no evidence of any delusional thought content and thought process is linear and goal-directed. Memory and concentration: AOX3, grossly intact for the purposes of this session Judgment and insight: Improving mildly Assessment Schizoaffective disorder, bipolar type Intellectual disability Plan: -Patient continues to meet criteria for inpatient psychiatric admission for symptom stabilization and safety. Patient has signed adult voluntary form and medication consent and was placed in patient's chart. -Medications: Transition to Risperdal uzedy 100 mg Sq today and will discontinue oral Risperdal. Continue Depakote 500 mg twice daily for mood stabilization, trazodone 200 mg at bedtime for sleep -When necessary Ativan and Haldol for agitation/aggression. -Labs: Reviewed, will order a Depakote level tomorrow -SW on board for discharge planning. Encouraged the patient to participate in milieu. Anticipate discharge back home tomorrow pending transition to NATARAJAN
[2024-04-29] MEDS: risperiDONE 100 MG/0.28 ML SYR (NO COST) SQ ONE (16:00)
--- NOTE | 2024-04-30 12:47 | P.DS ---
Providers Date of admission: 04/25/24 20:52 Expected date of discharge: 04/30/24 Attending physician: Shell Rosas MD Consults: 04/25/24 22:54 Consult Physician Routine Consulting Provider: Mitch Carpenter Consult Reason/Comments: History and Physical, New Admission Do you want consulting provider notified?: Yes Primary care physician: Jayson Bosch - Discharge Diagnosis(es) (1) Schizoaffective disorder Current Visit: Yes Status: Acute Priority: High (2) Intellectual disability Current Visit: Yes Status: Chronic Priority: Low Hospital Course: Admission HPI: Admission note was completed by technical proposal writer "Patient presented to the hospital with concerns for anger and right hand injury. EPS note revealed, "Patient brought to ER by pillowcase folder related to hand fracture from hitting a refrigerator. Patient assessed in ER13 from [id number]. Patient states "I was mad because she was suppose to pick me up and she was late, its cold out there". Patient verbalizes feeling overwhelmed and angry so he hit the refrigerator. Patient verbalizes getting into a verbal altercation with is roommate and his pillowcase folder was coming to get him. Patient lives in a "Home of your own" according to pillowcase folderEmily. Per Emily, this is similar to a alf, however there is no staff in the home. States that staff go to the home to assist patients during the day for medications and assistance as needed. Per emily, patient has two roommates and is constantly making threatening statements and gestures. Per emily, Patient last week lines knives on the counter and told his roommate he was "going to get him". Patient has not had any physical altercations at this time. Patient has mild developmental delay, verbalizes hx of seizure disorder. Patient verbalizes being compliant of his home medications. Patient denies alcohol or substance use. Patient denies complaints with appetite or sleep, appears to have fair hygiene. Patient verbalizes auditory hallucinations of "people telling me to kill myself and do bad things to myself". Patient verbalizes the voices are talking to him right now. Patient verbalizes visual hallucinations of "visions of mirela". Patient states he has not had any visual hallucinations in approx 1 week. Patient petitioned by his pillowcase folder Emily related to outbursts and threat to others. Emily states patient was last inpatient last month (March 2024) and he has been back home for approx 2-3 weeks." Patient seen and evaluated on the unit and was agreeable with speaking to technical proposal writer in office. He states slipping and falling yesterday and became upset when someone at his house began making fun of him. He states he punched a refrigerator and injured his right hand and ultimately was brought to the ED. He states being remorseful for his behavior and he is hopeful to return back to his home. He denied any sleep or appetite changes, anhedonia but did report feeling down at times, mood swings. Patient denies any suicidal or homicidal ideations intent or plan. At this time patient denies any auditory or visual hallucinations. Patient denies any flight of ideas racing thoughts and increased in goal directed behavior. Patient admits to using no substances." Hospital course: Upon admission to the unit patient was directable and agreeable to commence treatment and signed adult voluntary form.. Patient was largely isolative ho wever he did follow unit protocol. Patient was compliant with the medications and denied any side effects throughout hospital course. Patient was started on Depakote and this was increased to 500 mg twice daily for mood stabilization, trazodone continued at 200 mg at bedtime for insomnia. Patient was transition to Risperdal uzedy sq 100 mg, last received on 04/29/2024 and next due on 05/27/2024. Oral Risperdal was discontinued as there is no need for any coverage. Patient spoke of his stressors and engaged in therapy both group and individual. Patient was also seen by medical team for history and physical exam. Throughout the course of the hospitalization patient gradually improved with regards to mood, anxiety, sleep and returned back to their baseline level of functioning. On the day of discharge patient denied any suicidal or homicidal ideations intent or plan denied any auditory or visual hallucinations. The patient denied any access to guns or weapons. Patient denied any paranoia and did not endorse any delusions. Patient does not have a significant history of substance abuse and was counseled on abstaining from all substances including alcohol and marijuana. Patient was also counseled on the medications and need for regular compliance and was encouraged to follow-up with their outpatient appointment for mental health and also for primary care. Patient to be disch arged back to [facility] and will have [facility] follow-up. Mental status exam: General Appearance: Patient appears to be stated age is alert, pleasant, and cooperative. Patient is in no acute distress and has fair hygiene and grooming. He is wearing a cast on his right upper extremity Behavior: Patient is calmly seated without any agitated behavior. Speech: Patient's speech is fluent and nonpressured. Mood/Affect: Patient reports their mood is "better", affect is congruent and euthymic. Suicidality/Homicidality: Patient denies having any suicidal or homicidal ideation intent or plan. Perceptions: Patient denies any auditory or visual hallucinations. Though content/process: There is no evidence of any delusional thought content and thought process is linear and goal-directed. Memory and concentration: AOX3, grossly intact for the purposes of this session. Can spell "WORLD" backwards correctly. Judgment and insight: Fair Impression: Schizoaffective disorder, bipolar type Intellectual disability Plan: -Continue with discharge today as patient has improved and stabilized psychiatrically and is not currently an imminent threat to themself and/or others. -Continue medications: Risperdal uzedy 100 mg Sq next due on 05/27, Depakote 500 mg twice daily, trazodone 200 mg at bedtime -Patient was counseled on the need for medication compliance and appropriate follow-up at mental health and also primary care for medical issues. Patient verbalized understanding and agreed. -Social work to help coordinate patients discharge today. also to ensure safe home environment that guns/weapons are either removed from the home or locked away. Social work also to arrange for patients follow up appointments with [facility] for psychiatric care along with follow up with primary care provider. -Patient counseled on abstaining from recreational drugs and marijuana and alcohol. Was informed/educated on the adverse effects on their physical and mental health. Patient verbally agreed and understood. -Patient was instructed to return to the hospital or seek immediate medical care if their psychiatric or medical symptoms do worsen or reoccur. Allergies Allergy/AdvReac Type Severity Reaction Status Date / Time No Known Allergies Allergy Verified 04/25/24 17:26 Vital Signs Temp 97.9 F 04/30/24 06:25 Pulse 101 H 04/30/24 06:25 Resp 16 04/30/24 06:25 BP 132/79 04/30/24 06:25 Pulse Ox 97 01/28/25 06:25 FiO2 Patient Condition at Discharge: Stable Plan - Discharge Summary Discharge Rx Participant: Yes New Discharge Prescriptions: New Divalproex [Depakote] 500 mg PO BID 30 Days #60 tab risperiDONE [Uzedy] 100 mg SQ QMONTHLY #1 each Continue hydrOXYzine HCL [Atarax] 50 mg PO TID PRN 30 Days #60 tab PRN Reason: ANXIETY/AGITATION traZODone HCL [Desyrel] 200 mg PO HS 30 Days #60 tab levETIRAcetam [Keppra] 500 mg PO BID 30 Days #60 tab Discontinued risperiDONE [RisperDAL] 1 mg PO BID@0900,1500 risperiDONE [RisperDAL] 2 mg PO HS Discharge Medication List Divalproex [Depakote] 500 mg PO BID 30 Days #60 tab 04/30/24 [Rx] hydrOXYzine HCL [Atarax] 50 mg PO TID PRN 30 Days #60 tab 04/30/24 [Rx] levETIRAcetam [Keppra] 500 mg PO BID 30 Days #60 tab 04/30/24 [Rx] risperiDONE [Uzedy] 100 mg SQ QMONTHLY #1 each 04/30/24 [Rx] traZODone HCL [Desyrel] 200 mg PO HS 30 Days #60 tab 04/30/24 [Rx] Follow up Appointment(s)/Referral(s): [facility] [Outside] - 05/02/24 11:00 am (05/02/2024 11:00AM - 12:00PM EMILY REGALADO 05/14/2024 1:00PM - 1:30PM EM[facility] ALLEN ) Jayson Bosch DO [Primary Care Provider] - 1-2 days Howard Orlando DO [Doctor of Osteopathic Medicine] - 1-2 days Patient Instructions/Handouts: Schizoaffective Disorder (DC) Activity/Diet/Wound Care/Special Instructions: [facility] Discharge Info Avoid the use of street drugs and alcohol. Take all medications as prescribed. When you are in need of refills on your medications, please contact your outpatient medical provider and/or outpatient psychiatrist. Please go to your scheduled outpatient appointments for aftercare treatment. If symptoms return or become worse, call the crisis line at or and/or visit the nearest emergency room for assistance. National Suicide and Crisis Lifeline - call or text 458.
[2024-05-01 06:59] VITALS: BP 115/77; PULSE 96; TEMP 97.7
--- NOTE | 2024-05-01 12:55 | P.DS ---
Providers Date of admission: 04/25/24 20:52 Expected date of discharge: 05/01/24 Attending physician: Shell Rosas MD Consults: 04/25/24 22:54 Consult Physician Routine Consulting Provider: Mitch Carpenter Consult Reason/Comments: History and Physical, New Admission Do you want consulting provider notified?: Yes Primary care physician: Jayson Bosch - Discharge Diagnosis(es) (1) Schizoaffective disorder Current Visit: Yes Status: Acute Priority: High (2) Intellectual disability Current Visit: Yes Status: Chronic Priority: Low Hospital Course: Admission HPI: Admission note was completed by keno writer / runner "Patient presented to the hospital with concerns for anger and right hand injury. EPS note revealed, "Patient brought to ER by manager rn case related to hand fracture from hitting a refrigerator. Patient assessed in ER13 from [id number]. Patient states "I was mad because she was suppose to pick me up and she was late, its cold out there". Patient verbalizes feeling overwhelmed and angry so he hit the refrigerator. Patient verbalizes getting into a verbal altercation with is roommate and his manager rn case was coming to get him. Patient lives in a "Home of your own" according to manager rn caseEmily. Per Emily, this is similar to a custodial, however there is no staff in the home. States that staff go to the home to assist patients during the day for medications and assistance as needed. Per emily, patient has two roommates and is constantly making threatening statements and gestures. Per emily, Patient last week lines knives on the counter and told his roommate he was "going to get him". Patient has not had any physical altercations at this time. Patient has mild developmental delay, verbalizes hx of seizure disorder. Patient verbalizes being compliant of his home medications. Patient denies alcohol or substance use. Patient denies complaints with appetite or sleep, appears to have fair hygiene. Patient verbalizes auditory hallucinations of "people telling me to kill myself and do bad things to myself". Patient verbalizes the voices are talking to him right now. Patient verbalizes visual hallucinations of "visions of mirela". Patient states he has not had any visual hallucinations in approx 1 week. Patient petitioned by his manager rn case Emily related to outbursts and threat to others. Emiyl states patient was last inpatient last month (March 2024) and he has been back home for approx 2-3 weeks." Patient seen and evaluated on the unit and was agreeable with speaking to keno writer / runner in office. He states slipping and falling yesterday and became upset when someone at his house began making fun of him. He states he punched a refrigerator and injured his right hand and ultimately was brought to the ED. He states being remorseful for his behavior and he is hopeful to return back to his home. He denied any sleep or appetite changes, anhedonia but did report feeling down at times, mood swings. Patient denies any suicidal or homicidal ideations intent or plan. At this time patient denies any auditory or visual hallucinations. Patient denies any flight of ideas racing thoughts and increased in goal directed behavior. Patient admits to using no substances." Hospital course: Upon admission to the unit patient was directable and agreeable to commence treatment and signed adult voluntary form.. Patient got along well with other patients on the unit and followed unit protocol. He was largely isolative however he did attend groups towards the end of his stay. Patient was compliant with the medications and denied any side effects throughout hospital course. Patient was started on Depakote and this was increased to 500 mg twice daily for mood stabilization, trazodone continued at 200 mg at bedtime for insomnia. Depakote level returned at 56. Patient was transitioned to Risperdal uzedy 100 mg SQ, last given on 04/29/2024 and next due on 05/27/2024. Oral Risperdal was thus discontinued. Patient spoke of his stressors and engaged in therapy both group and individual. Patient was also seen by medical team for history and physical exam. Throughout the course of the hospitalization patient gradually improved with regards to mood, anxiety, sleep and returned back to their baseline level of functioning. On the day of discharge patient denied any suicidal or homicidal ideations intent or plan denied any auditory or visual hallucinations. The patient denied any access to guns or weapons. Patient denied any paranoia and did not endorse any delusions. Patient does not have a significant history of substance abuse and was counseled on abstaining from all substances including alcohol and marijuana. Patient was also counseled on the medications and need for regular compliance and was encouraged to follow-up with their outpatient appointment for mental health and also for primary care. Patient to be discharged to [facility] with daily [facility] visits. Mental status exam: General Appearance: Patient appears to be stated age is alert, pleasant, and cooperative. Patient is in no acute distress and has fair hygiene and grooming. He has a cast on his right upper extremity Behavior: Patient is calmly seated without any agitated behavior. Speech: Patient's speech is fluent and nonpressured. Mood/Affect: Patient reports their mood is "happy", affect is constricted Suicidality/Homicidality: Patient denies having any suicidal or homicidal ideation intent or plan. Perceptions: Patient denies any auditory or visual hallucinations. Though content/process: There is no evidence of any delusional thought content and thought process is linear and goal-directed. Memory and concentration: AOX3, grossly intact for the purposes of this session. Can spell "WORLD" backwards correctly. Judgment and insight: Fair Impression: Schizoaffective disorder, bipolar type Intellectual disability Plan: -Continue with discharge today as patient has improved and stabilized psychiatrically and is not currently an imminent threat to themself and/or others. -Continue medications: Risperdal uzedy 100 mg subcu, next due on 05/27, Depakote 500 mg twice daily, trazodone 200 mg at bedtime -Patient was counseled on the need for medication compliance and appropriate follow-up at mental health and also primary care for medical issues. Patient verbalized understanding and agreed. -Social work to help coordinate patients discharge today. also to ensure safe home environment that guns/weapons are either removed from the home or locked away. Social work also to arrange for patients follow up appointments with [facility] for psychiatric care along with follow up with primary care provider. -Patient counseled on abstaining from recreational drugs and marijuana and alcohol. Was informed/educated on the adverse effects on their physical and mental health. Patient verbally agreed and understood. -Patient was instructed to return to the hospital or seek immediate medical care if their psychiatric or medical symptoms do worsen or reoccur. Allergies Allergy/AdvReac Type Severity Reaction Status Date / Time No Known Allergies Allergy Verified 04/25/24 17:26 Vital Signs Temp 97.7 F 05/01/24 06:58 Pulse 96 05/01/24 06:58 Resp 16 04/30/24 06:25 BP 115/77 05/01/24 06:58 Pulse Ox 98 05/01/24 06:58 FiO2 Patient Condition at Discharge: Stable Plan - Discharge Summary Discharge Rx Participant: Yes New Discharge Prescriptions: New Divalproex [Depakote] 500 mg PO BID 30 Days #60 tab risperiDONE [Uzedy] 100 mg SQ QMONTHLY #1 each Continue hydrOXYzine HCL [Atarax] 50 mg PO TID PRN 30 Days #60 tab PRN Reason: ANXIETY/AGITATION traZODone HCL [Desyrel] 200 mg PO HS 30 Days #60 tab levETIRAcetam [Keppra] 500 mg PO BID 30 Days #60 tab Discontinued risperiDONE [RisperDAL] 1 mg PO BID@0900,1500 risperiDONE [RisperDAL] 2 mg PO HS Discharge Medication List Divalproex [Depakote] 500 mg PO BID 30 Days #60 tab 04/30/24 [Rx] hydrOXYzine HCL [Atarax] 50 mg PO TID PRN 30 Days #60 tab 04/30/24 [Rx] levETIRAcetam [Keppra] 500 mg PO BID 30 Days #60 tab 04/30/24 [Rx] risperiDONE [Uzedy] 100 mg SQ QMONTHLY #1 each 04/30/24 [Rx] traZODone HCL [Desyrel] 200 mg PO HS 30 Days #60 tab 04/30/24 [Rx] Follow up Appointment(s)/Referral(s): [facility] [Outside] - 05/02/24 11:00 am (05/02/2024 11:00AM - 12:00PM EMILY REGALADO 05/14/2024 1:00PM - 1:30PM EMILY ALLEN ) Jayson Bosch DO [Primary Care Provider] - 1-2 days Howard Orlando DO [Doctor of Osteopathic Medicine] - 1-2 days Patient Instructions/Handouts: Schizoaffective Disorder (DC) Activity/Diet/Wound Care/Special Instructions: [facility] Discharge Info Avoid the use of street drugs and alcohol. Take all medications as prescribed. When you are in need of refills on your medications, please contact your outpatient medical provider and/or outpatient psychiatrist. Please go to your scheduled outpatient appointments for aftercare treatment. If symptoms return or become worse, call the crisis line at or and/or visit the nearest emergency room for assistance. National Suicide and Crisis Lifeline - call or text 988. Discharge Disposition: HOME SELF-CARE
== END 2024-05-01 15:21 | disposition home or self-care (01) | DRG 885 ==
LOC: EC 15:40 → 3MHU 20:52
PROVIDERS: ADMIT Psychiatry & Neurology Psychiatry; ATTEND Psychiatry & Neurology Psychiatry
PROC: 2W3CX1Z Immobilization of Right Lower Arm using Splint (ICD-10-PCS; principal; 2024-04-25)
DX: F25.0 Schizoaffective disorder, bipolar type (principal); F10.11 Alcohol abuse, in remission; S62.396A Other fracture of fifth metacarpal bone, right hand, initial encounter for closed fracture; G40.909 Epilepsy, unspecified, not intractable, without status epilepticus; J45.909 Unspecified asthma, uncomplicated; F41.9 Anxiety disorder, unspecified; G47.00 Insomnia, unspecified; F79 Unspecified intellectual disabilities; Z79.899 Other long term (current) drug therapy; Z91.148 Patient's other noncompliance with medication regimen for other reason; Z87.891 Personal history of nicotine dependence; W22.09XA Striking against other stationary object, initial encounter; W01.0XXA Fall on same level from slipping, tripping and stumbling without subsequent striking against object, initial encounter
CPT/HCPCS: 29125; 80164; 80306; 81003; 82075; 87635; 99285

== ENCOUNTER 2024-09-17 11:36 | Emergency (ER) | payer MEDICARE, MEDICAID ==
--- NOTE | 2024-09-17 12:31 | ED ---
Extremity Problem HPI - General Chief complaint: Extremity Problem,Nontraumatic Stated complaint: R wrist injury Time Seen by Provider: 09/17/24 12:28 Source: patient, RN notes reviewed Mode of arrival: ambulatory Limitations: no limitations - History of Present Illness Initial comments: 49-year-old male presenting for wrist pain x 3 days. Denies injury or trauma but states he has been doing heavy lifting and holding heavy grocery bags. Denies redness or drainage. Full range of motion. Denies radiation or numbness and tingling. - Related Data Previous Rx's Medication Instructions Recorded Divalproex [Depakote] 500 mg PO BID 30 Days #60 tab 04/30/24 hydrOXYzine HCL [Atarax] 50 mg PO TID PRN 30 Days #60 tab 04/30/24 levETIRAcetam [Keppra] 500 mg PO BID 30 Days #60 tab 04/30/24 risperiDONE [Uzedy] 100 mg SQ QMONTHLY #1 each 04/30/24 traZODone HCL [Desyrel] 200 mg PO HS 30 Days #60 tab 04/30/24 Allergies Allergy/AdvReac Type Severity Reaction Status Date / Time No Known Allergies Allergy Verified 09/17/24 11:51 Review of Systems ROS Statement: Those systems with pertinent positive or pertinent negative responses have been documented in the HPI. ROS Other: All systems not noted in ROS Statement are negative. Past Medical History Past Medical History: Asthma, Seizure Disorder History of Any Multi-Drug Resistant Organisms: None Reported Past Surgical History: No Surgical Hx Reported Past Psychological History: Bipolar Smoking Status: Former smoker Past Alcohol Use History: Occasional Past Drug Use History: None Reported General Exam Limitations: no limitations General appearance: alert, in no apparent distress Right Elbow exam: Present: normal inspection, full ROM. Absent: tenderness, swelling Forearm Wrist exam: Present: normal inspection, full ROM, tenderness (Mild tenderness at lateral aspect of right wrist. No overlying skin changes). Absent: swelling, abrasion, erythema, tenderness over anatomical snuff box Hand Wrist exam: Present: normal inspection, full ROM. Absent: tenderness, swelling Vascular: Present: normal capillary refill, radial pulse. Absent: vascular compromise Neurological exam: Present: alert, oriented X3 Psychiatric exam: Present: normal affect, normal mood Skin exam: Present: warm, dry, intact, normal color. Absent: rash Course Vital Signs 09/17/24 09/17/24 11:48 13:45 Temperature 97.8 F 97.9 F Pulse Rate 119 H 95 Respiratory 22 18 Rate Blood Pressure 126/86 128/85 O2 Sat by Pulse 97 98 Oximetry Medical Decision Making - Medical Decision Making Was pt. sent in by a medical professional or institution (, PA, [employer], urgent care, hospital, or alf...) When possible be specific @ -No Did you speak to anyone other than the patient for history (EMS, parent, family, police, friend...)? What history was obtained from this source @ -No Did you review nursing and triage notes (agree or disagree)? Why? @ -I reviewed and agree with nursing and triage notes Were old charts reviewed (outside hosp., previous admission, EMS record, old EKG, old radiological studies, urgent care reports/EKG's, alf records)? Report findings @ -No old charts were reviewed Differential Diagnosis (chest pain, altered mental status, abdominal pain women, abdominal pain men, vaginal bleeding, weakness, fever, dyspnea, syncope, headache, dizziness, GI bleed, back pain, seizure, CVA, palpatations, mental health, musculoskeletal)? @ -Differential Musculoskeletal Muscular strain, contusion, ligament sprain, fracture, arthritis, septic arthritis, bursitis, cellulitis, muscle spasm, nerve compression, DVT, arterial occlusion, herpes zoster, electrolyte abnormality, tumor.... This is not meant to be in all inclusive list EKG interpreted by me (3pts min.). @ -None X-rays interpreted by me (1pt min.). @ -X-ray right wrist reveals no acute process CT interpreted by me (1pt min.). @ -None done U/S interpreted by me (1pt. min.). @ -None done What testing was considered but not performed or refused? (CT, X-rays, U/S, labs)? Why? @ -None What meds were considered but not given or refused? Why? @ -None Did you discuss the management of the patient with other professionals (professionals i.e. , PA, [employer], lab, RT, psych nurse, social services analyst, camera systems engineer, teacher, ict help desk officer, correctional case records supervisor)? Give summary @ -No Was smoking cessation discussed for >3mins.? @ -No Was critical care preformed (if so, how long)? @ -No Were there social determinants of health that impacted care today? How? (Homelessness, low income, unemployed, alcoholism, drug addiction, transportation, low edu. Level, literacy, decrease access to med. care, penitentiary, rehab)? @ -No Was there de-escalation of care discussed even if they declined (Discuss DNR or withdrawal of care, Hospice)? DNR status @ -No What co-morbidities impacted this encounter? (DM, HTN, Smoking, COPD, CAD, Cancer, CVA, ARF, Chemo, Hep., AIDS, mental health diagnosis, sleep apnea, morbid obesity)? @ -None Was patient admitted / discharged? Hospital course, mention meds given and route, prescriptions, significant lab abnormalities, going to OR and other pertinent info. @ -Discharge. 49-year-old male presenting for nontraumatic right wrist pain x 3 days. Neurovascularly intact. Full range of motion. No sign of bacterial infection. Provided with ibuprofen for supportive care. X-ray right wrist reveals no acute process. Patient updated on x-ray results. Piyush wrap applied for comfort. Appropriate supportive care and follow-up care discussed. Case was discussed with my ED attending Dr. Spicer. Undiagnosed new problem with uncertain prognosis? @ -No Drug Therapy requiring intensive monitoring for toxicity (Heparin, Nitro, Insulin, Cardizem)? @ -No Were any procedures done? @ -No Diagnosis/symptom? @ -Right wrist pain Acute, or Chronic, or Acute on Chronic? @ -Acute Uncomplicated (without systemic symptoms) or Complicated (systemic symptoms)? @ -Uncomplicated Side effects of treatment? @ -No Exacerbation, Progression, or Severe Exacerbation? @ -No Poses a threat to life or bodily function? How? (Chest pain, [place], [place], pneumonia, PE, COPD, DKA, ARF, appy, cholecystitis, CVA, Diverticulitis, Homicidal, Suicidal, threat to staff... and all critical care pts) @ -No Disposition Clinical Impression: Strain of right wrist Disposition: HOME SELF-CARE Condition: Stable Instructions (If sedation given, give patient instructions): Wrist Sprain (ED) Additional Instructions: Take ibuprofen or Tylenol as needed for pain. Apply ice and elevate the right wrist. Please return to the Emergency Department if symptoms worsen or any other concerns. Is patient prescribed a controlled substance at d/c from ED?: No Referrals: None,Stated [Primary Care Provider] - 1-2 days Time of Disposition: 13:52
[2024-09-17] MEDS: IBUPROFEN 800 MG TAB PO STA (12:42)
--- NOTE | 2024-09-17 13:19 | XR ---
EXAMINATION TYPE: XR wrist complete RT DATE OF EXAM: 09/17/2024 12:56 PM COMPARISON: None CLINICAL INDICATION: Male, 49 years old with history of right wrist pain; PHH, pain TECHNIQUE: XR wrist complete RT; examined in the Frontal, navicular, lateral, and oblique. FINDINGS: No acute osseous pathology, joint dislocation, or joint effusion. No evidence of any soft tissue swelling is seen. Osseous fusion of prior fracture of the fifth metacarpal. IMPRESSION: 1. No acute osseous pathology. 2. Osseous fusion of the fifth metacarpal from prior fracture. [facility], , 09/17/2024 1:16 PM
[2024-09-17 13:45] VITALS: BP 128/85; PULSE 95; RESP 18; TEMP 97.9
== END 2024-09-17 14:22 | disposition home or self-care (01) ==
LOC: EC 11:36
DX: S66.911A Strain of unspecified muscle, fascia and tendon at wrist and hand level, right hand, initial encounter (principal); Z87.891 Personal history of nicotine dependence; X58.XXXA Exposure to other specified factors, initial encounter
CPT/HCPCS: 99283